=== PATIENT | female | born 1970 | race Caucasian/White ===

== ENCOUNTER 2019-12-26 09:25 | Outpatient (CLI) | payer OTHER, SELFPAY ==
[2019-12-26 10:02] LABS: Basophils Percent Auto 0.7 % (0.2-1.2); Eosinophils Absolute Auto 0.1 K/mm3 (0-0.3); Eosinophils Percent Auto 1.1 % (0-4.4); Hematocrit 37.7 % (37.0-47.0); Hemoglobin 12.5 g/dL (12.0-15.0); Immature Granulocyte Absolute 0.01 K/mm3 (0.00-0.031); Immature Granulocyte Percent A 0.2 % (0-0.5); Lymphocytes Absolute Auto 2.19 K/mm3 (0.9-3.2); Mean Corpuscular HGB Conc 33.2 g/dl (32-36); Mean Corpuscular Hemoglobin 28.3 pg (26-34); Mean Corpuscular Volume 85.5 fl (80-100); Mean Platelet Volume 9.4 fl (7.4-10.4); Monocytes Absolute Auto 0.4 K/mm3 (0.1-0.6); Monocytes Percent Auto 7.7 % (2.6-8.5); Neutrophils Absolute Auto 2.9 K/mm3 (1.3-6.7); Neutrophils Percent Auto 51.3 % (45.5-73.1); Platelet Count Result 243 k/mm3 (150-375); Red Blood Count 4.41 M/mm3 (4.2-5.4); White Blood Count 5.6 K/mm3 (4.5-10.0)
[2019-12-26 10:14] LABS: Alanine Aminotransferase 9 U/L (4-35); Albumin Level 4.1 g/dL (3.5-5.1); Alkaline Phosphatase 106 U/L (38-126); Aspartate Amino Transferase 23 U/L (14-36); Bilirubin,Total 0.2 mg/dL (0.2-1.3); Blood Urea Nitrogen 12 mg/dL (7-17); Calcium 8.9 mg/dL (8.4-10.2); Carbon Dioxide 27 mmol/L (22-30); Chloride 103 mmol/L (98-107); Cholesterol 235 mg/dL (0-200); Estimated Glomerular Filt Rate > 60; Glucose 95 mg/dL (65-105); HDL Direct 53 mg/dL; Sodium 138 mmol/L (137-145); Triglycerides 204 mg/dL (<150)
[2019-12-26 10:24] LABS: LDL Cholesterol Direct 130 mg/dL
[2019-12-26 10:45] LABS: Hepatitis B Surface Antigen Negative (Negative)
[2019-12-26 10:51] LABS: HAV RESULT Negative (Negative); Hepatitis B Core IgM Result Negative (Negative)
[2019-12-26 11:02] LABS: HIV 1/2 Ab P24 Ag Result Negative (Negative); Hepatitis C Virus Antibody Negative (Negative)
== END 2019-12-26 09:26 | disposition home or self-care (01) ==
PROVIDERS: PCP Internal Medicine; Visit Provider Internal Medicine
DX: Z11.4 Encounter for screening for human immunodeficiency virus [HIV] (principal); E78.5 Hyperlipidemia, unspecified; D64.9 Anemia, unspecified; R10.9 Unspecified abdominal pain; Z11.59 Encounter for screening for other viral diseases
CPT/HCPCS: 36415; 80053; 80061; 80074; 85025; 86703; G0432

== ENCOUNTER 2019-12-27 00:48 | Day surgery (SDC) | payer OTHER, SELFPAY ==
[2019-12-20 15:31] VITALS: BMI 29.8
[2019-12-27 11:13] VITALS: BP 146/72; PULSE 74; RESP 16; TEMP 36.6; O2SAT 97; BMI 30.4
[2019-12-27] MEDS: LACTATED RINGERS 1,000 ML 150 ML IV CONT (11:39)
--- NOTE | 2019-12-27 11:41 | WPDANESEPPF ---
Anes - Initial Pre Proc Eval Procedure: Operation Date: 12/27/19 13:00 Proposed Procedures p Esophagogastroduodenoscopy - Eliu Clark DO Date/Time: 12/27/19 11:41 Surgeon: Eliu Clark DO Pre Op Diagnosis: Abdominal Bloating, Muniz Syndrome Patient Data Age: 49 Gender: F Height: 5 ft 7 in Weight: 88.3 kg Last Vital Signs Temp 97.9 F 12/27/19 11:13 Pulse 74 12/27/19 11:13 Resp 16 12/27/19 11:13 BP 146/72 H 12/27/19 11:13 Pulse Ox 97 12/27/19 11:13 Allergies Allergy/AdvReac Type Severity Reaction Status Date / Time Penicillins Allergy Unknown Rash Verified 12/27/19 11:26 Home Medications Medication Instructions Recorded Confirmed Type omeprazole 40 mg PO DAILY 12/20/19 12/27/19 History citalopram 20 mg tablet 20 mg PO DAILY #30 tablet 12/26/19 12/26/19 Rx furosemide 20 mg tablet 20 mg PO QAM #90 tablet 12/26/19 Rx Patient hx anesthesia problems: none Family hx anesthesia problems: none PMFSH Past Medical History Medical History (Updated 12/24/19 @ 21:19 by Gilberto Cain DO) Family hx of colon cancer History of arm fracture Hx of adenomatous colonic polyps Hx of diverticulitis of colon Hyperlipidemia Hypertension Surgical History Surgical History (Updated 10/04/19 @ 12:35 by Olimpia Schneider, DAYLIGHT DRILLER) Hx of abdominal hysterectomy Hx of colonoscopy Hx of cystoscopy Family History Family History (Updated 10/04/19 @ 11:46 by Olimpia Schneider, DAYLIGHT DRILLER) Mother Cerebrovascular accident Patient's mother is Acute myocardial infarction Father Family history of malignant neoplasm of urinary bladder Sibling Carcinoma of colon Grandparent Ovarian cancer Cervical cancer Social History Social History Smoking status: Never smoker Alcohol intake: never Anes - Eval Final PreProcedure Day of Procedure 12/27/19 11:41 Patient weight: overweight Heart: regular rate and rhythm Lungs: clear to auscultation Airway: Mallampati scale class II Neurological: alert and oriented Last oral intake: >/= 8 hours ASA classification: II Emergent: no Anesthetic plan: proceed Anesthesia type and monitoring: general GIVS and standard monitoring Informed Consent: The patient's anesthetic plan and its attendant risks and benefits were discussed with the patient/family/POA. Questions were solicited and answers provided to the satisfaction of the patient/family/POA.
--- NOTE | 2019-12-27 12:36 | PM.IMHP ---
H&P: HPI History of Present Illness Chief complaint: Abdominal Bloating, Muniz Syndrome Narrative: Reason for visit EGD. This very pleasant lady seen at the request of the primary physician and with the patient admission. Impression: [place] pleasant lady with anemia. Evaluate for line peptic ulcer disease. She has significant bloating which may be due to underlying dyspepsia. Peptic ulcer disease again needs to be excluded. Family history of colorectal cancer. The patient has personal history adenomatous colon polyps. Per past medical history. Recommendation: Will proceed with EGD. Continue PPI. History: This very pleasant lady's being very for abdominal bloating. She has bloating that comes and goes. It usually occurs after eating. Nocturnal awakenings at night. She does have some right upper quadrant discomfort. Length discomforts difficult to ascertain. Nausea, vomiting hematemesis tonight. Dysphagia odynophagia tonight. Patient does have some heartburn. She was placed on a PPI with only minimal improvement. Constipation, diarrhea, hematochezia, melanotic acholic stools tonight. She did have a family history of colon cancer and a personal history of adenomatous colon polyps. She is here for EGD. Review of Systems Review of Systems: All systems reviewed & are unremarkable except as noted in HPI and below PMFSH Past Medical History Medical History (Updated 12/24/19 @ 21:19 by Gilberto Cain DO) Family hx of colon cancer History of arm fracture Hx of adenomatous colonic polyps Hx of diverticulitis of colon Hyperlipidemia Hypertension Surgical History Surgical History (Updated 10/04/19 @ 12:35 by Olimpia Schneider, HOME THEATER SPECIALIST) Hx of abdominal hysterectomy Hx of colonoscopy Hx of cystoscopy Family History Family History (Updated 10/04/19 @ 11:46 by Olimpia Schneider, HOME THEATER SPECIALIST) Mother Cerebrovascular accident Patient's mother is Acute myocardial infarction Father Family history of malignant neoplasm of urinary bladder Sibling Carcinoma of colon Grandparent Ovarian cancer Cervical cancer Social History Social History Smoking status: Never smoker Alcohol intake: never Meds Home Medications and Allergies Home Medications Medication Instructions Recorded Confirmed Type omeprazole 40 mg PO DAILY 12/20/19 12/27/19 History citalopram 20 mg tablet 20 mg PO DAILY #30 tablet 12/26/19 12/26/19 Rx furosemide 20 mg tablet 20 mg PO QAM #90 tablet 12/26/19 Rx Allergies Allergy/AdvReac Type Severity Reaction Status Date / Time Penicillins Allergy Unknown Rash Verified 12/27/19 11:26 Vital Signs Vital Signs - 24 hr 12/27/19 11:13 Temperature 36.6 C Pulse Rate 74 Respiratory Rate 16 Blood Pressure 146/72 H Pulse Oximetry 97 Exam Narrative: Exam Narrative: General: very pleasant patient in no acute distress. HEENT: Head was normocephalic sclerae is clear mouth without masses neck was supple. Heart: Rate rhythm regular without S3 or S4. Lungs: CTA. Abdomen: Soft with no guarding or rigidity. Bowel sounds were active. Neurologic: Cranial nerves 2 through 12 intact. No focal defects. No clonus. Musculoskeletal system: Revealed no joint tenderness or swelling no muscle atrophy. Extremities: Reveal no significant edema. Skin: Warm and dry with normal turgor. Mental status: intact. Patient is alert and oriented. Pearl to thank you for allowing me to participate in the care of this interesting patient.
[2019-12-27 12:58] VITALS: BP 137/71; PULSE 77; RESP 20; O2SAT 100
[2019-12-27 13:08] VITALS: BP 138/75; PULSE 66; RESP 18; O2SAT 100
[2019-12-27 13:18] VITALS: BP 141/71; PULSE 62; RESP 20; O2SAT 100
== END 2019-12-27 13:42 | disposition home or self-care (01) ==
PROVIDERS: PCP Internal Medicine; Visit Provider Internal Medicine Gastroenterology
PROC: 0DJ08ZZ Inspection of Upper Intestinal Tract, Via Natural or Artificial Opening Endoscopic (ICD-10-PCS; CPT 43235; principal; 2019-12-27 13:00)
DX: R14.0 Abdominal distension (gaseous) (principal); D64.9 Anemia, unspecified; Z15.09 Genetic susceptibility to other malignant neoplasm; Z80.0 Family history of malignant neoplasm of digestive organs; I10 Essential (primary) hypertension; E78.5 Hyperlipidemia, unspecified
CPT/HCPCS: 43239; 87081; 88305; J2001; J2704; J7120

== ENCOUNTER 2020-04-24 13:19 | Outpatient (CLI) | payer OTHER, SELFPAY ==
[2020-04-24 13:52] LABS: Urine Cotinine NEGATIVE
[2020-04-24 13:56] LABS: Alanine Aminotransferase 11 U/L (4-35); Albumin Level 4.4 g/dL (3.5-5.1); Alkaline Phosphatase 121 U/L (38-126); Aspartate Amino Transferase 26 U/L (14-36); Bilirubin,Total 0.3 mg/dL (0.2-1.3); Blood Urea Nitrogen 13 mg/dL (7-17); Calcium 9.3 mg/dL (8.4-10.2); Carbon Dioxide 26 mmol/L (22-30); Chloride 104 mmol/L (98-107); Cholesterol 283 mg/dL (0-200); Estimated Glomerular Filt Rate > 60; Glucose 96 mg/dL (65-105); HDL Direct 52 mg/dL; Potassium 4.2 mmol/L (3.4-5.0); Sodium 140 mmol/L (137-145); Triglycerides 165 mg/dL (<150)
[2020-04-24 13:59] LABS: Hemoglobin A1C 5.5 % (<5.7)
[2020-04-24 14:07] LABS: LDL Cholesterol Direct 158 mg/dL
[2020-04-24 17:28] LABS: Free T4 Free Thyroxine 1.06 ng/mL (0.78-2.19)
== END 2020-04-24 13:20 | disposition home or self-care (01) ==
PROVIDERS: PCP Internal Medicine; Visit Provider Nurse Practitioner
DX: R63.5 Abnormal weight gain (principal); E78.5 Hyperlipidemia, unspecified
CPT/HCPCS: 36415; 80053; 80061; 80307; 83036; 84439; 84443

== ENCOUNTER 2020-05-15 16:12 | Outpatient (CLI) | payer OTHER, SELFPAY ==
--- NOTE | 2020-05-21 12:39 | WPDHOLTEREM ---
Holter/Event Monitor Holter/Event Monitor Date of procedure: 05/15/20 Procedure Type: 48 hour holter monitor Indications: Palpitations Conclusion: 1. 48 hour holter on 05/15/20. 2. Underlying rhythm is sinus rhythm. HR range 46-125 bpm; average HR 80 bpm. 3. There are 6,737 premature supraventricular complexes, 19 supraventricular couplets, 1 supraventricular triplet, 3,885 supraventricular bigeminy and 281 supraventricular trigeminy. No supraventricular tachycardia. 4. There are 7 premature ventricular complexes. No ventricular tachycardia. 5. No sinoatrial or atrioventricular blocks. No significant pauses greater than 2 seconds. 6. Patient reports symptoms of pounding, skipping beats, heart pausing, fluttering, dizziness, sweating, beating hard, quivering, chest pain, palpitations which demonstrate sinus rhythm, HR range 63-119 bpm.
== END 2020-05-15 16:13 | disposition home or self-care (01) ==
PROVIDERS: PCP Internal Medicine; Visit Provider Nurse Practitioner
DX: R00.2 Palpitations (principal)
CPT/HCPCS: 93225; 93226

== ENCOUNTER 2020-07-13 09:32 | Outpatient (CLI) | payer OTHER, SELFPAY ==
--- NOTE | ~2020-07-13 | MR_ITS ---
EXAMINATION: MR knee LT wo con DATE: 07/13/2020 10:29 INDICATION: Left knee joint pain. TECHNIQUE: Magnetic resonance imaging (MRI) of the left knee was performed without intravenous contra st. Sequences included axial PD-weighted FS FSE, coronal PD-weighted FSE and PD-weighted FS FSE, sagi ttal PD-weighted FSE, and sagittal T2-weighted FS FSE. COMPARISON: Left knee radiographs 08/11/2019 FINDINGS: Medial compartment: There is a complex tear involving body and posterior horn of medial meniscus. There is shallow partia l-thickness cartilage loss of tibial condyle. There is deep partial thickness cartilage loss of femor al condyle involving the medial and central articular surface. Marginal osteophytes are noted. Lateral compartment: Lateral meniscus is normal. There is cartilage surface irregularity of femoral condyle. Tibial cartil age is normal. Patellofemoral compartment: There is deep partial thickness cartilage loss of patellar medial facet and median ridge with mild lee bchondral edema-like marrow signal intensity. There is shallow partial-thickness cartilage loss of tr ochlea. Osteophytes are noted. Ligaments and tendons: The anterior and posterior cruciate ligaments are normal. Medial collateral ligament is intact. There are changes of prior sprain of fibular collateral ligament characterized by thickening and increased signal intensity proximally. There is mild patellar tendinopathy. Fluid: There is a moderate-sized knee joint effusion. There is a moderate-sized ruptured Garcia's cyst. There is moderate superficial infrapatellar bursitis. IMPRESSION: 1. Moderate chondrosis of medial and patellofemoral compartments and mild chondrosis of lateral kelsey rtment. 2. Tear of medial meniscus. 3. Moderate-sized knee joint effusion. 4. Moderate-sized ruptured Garcia's cyst. Reviewed, dictated and finalized at location A. IMPRESSION: 1. Moderate chondrosis of medial and patellofemoral compartments and mild chond rosis of lateral compartment. 2. Tear of medial meniscus. 3. Moderate-sized knee joint effusion. 4. Moderate-sized ruptured Garcia's cyst.
== END 2020-07-13 09:33 | disposition home or self-care (01) ==
PROVIDERS: PCP Internal Medicine; Visit Provider Orthopaedic Surgery
DX: M25.462 Effusion, left knee (principal); M71.22 Synovial cyst of popliteal space [Baker], left knee; S83.242A Other tear of medial meniscus, current injury, left knee, initial encounter; X58.XXXA Exposure to other specified factors, initial encounter
CPT/HCPCS: 73721

== ENCOUNTER 2020-08-02 09:11 | Outpatient (CLI) | payer OTHER, SELFPAY ==
--- NOTE | ~2020-08-02 | MM_ITS ---
EXAMINATION: MM screening jerzy BI w oliver HISTORY: Screening TECHNIQUE: Craniocaudal and mediolateral oblique 3-D tomosynthesis images were obtained and synthetic 2-D images were generated. CAD analysis was submitted and interpreted. COMPARISON: Comparison to multiple prior studies sequentially, with oldest reviewed study dated 12/2011. BREAST PARENCHYMAL COMPOSITION: There are scattered areas of fibroglandular density. FINDINGS: There is no evidence of suspicious mass, calcification, or architectural distortion to sugg est malignancy in either breast. There has been no suspicious interval change. IMPRESSION: 1. No mammographic evidence of malignancy. 2. Recommend routine screening mammography in one year. BI-RADS Category 1: Negative Reviewed, dictated and finalized at location A.
== END 2020-08-02 09:12 | disposition home or self-care (01) ==
LOC: ANHIMG 09:14
PROVIDERS: PCP Internal Medicine; Visit Provider Internal Medicine
DX: Z12.31 Encounter for screening mammogram for malignant neoplasm of breast (principal)
CPT/HCPCS: 77063; 77067

== ENCOUNTER 2020-08-13 10:46 | Outpatient (CLI) | payer OTHER, SELFPAY ==
[2020-08-13 11:22] LABS: Alanine Aminotransferase 16 U/L (4-35); Albumin Level 4.6 g/dL (3.5-5.1); Alkaline Phosphatase 114 U/L (38-126); Aspartate Amino Transferase 36 U/L (14-36); Bilirubin,Total 0.4 mg/dL (0.2-1.3); Cholesterol 169 mg/dL (0-200); HDL Direct 50 mg/dL; Triglycerides 163 mg/dL (<150)
[2020-08-13 11:33] LABS: LDL Cholesterol Direct 71 mg/dL
== END 2020-08-13 10:47 | disposition home or self-care (01) ==
PROVIDERS: PCP Internal Medicine; Visit Provider Nurse Practitioner
DX: E78.5 Hyperlipidemia, unspecified (principal); I10 Essential (primary) hypertension
CPT/HCPCS: 36415; 80061; 80076

== ENCOUNTER 2020-08-15 10:00 | Outpatient (RCR) | payer OTHER, SELFPAY ==
--- NOTE | 2020-07-08 11:39 | PTOPEVAL ---
Thank you for referring Birgit Estrada to [facility].? The patient is scheduled to be seen for therapy? 2 x/week for 4 weeks. Please review, sign, date and return this plan of care BOBBI. I agree with and certify that the following plan of care is medically necessary. Referring Physician Date Admitting Provider: Attending Provider: Duglas Galaviz MD Referring Provider: *PT Outpatient Evaluation Start: 07/08/20 10:24 Freq: Status: Active Protocol: Document 07/08/20 10:28 TL (Rec: 07/08/20 11:21 [facility] [id number]) Therapy Assessment Status Assessment Status Assessment Status Evaluation Outpatient Past Medical History Past Medical History Source of Past Medical History Recalled from Previous Visit, Confirmed with Patient/Family Gastrointestinal History Hx Diverticulitis Yes Hx Gastroesophageal Reflux Disease Yes Hx Hemorrhoids Yes Hx Polyps Yes Genitourinary History Hx Urinary Tract Infection Yes Musculoskeletal History Hx Arthritis Yes: BILATERAL KNEES Hx Fractures Yes: RT ARM Hx Orthopedic Surgery Yes: RT ARM HEENT History Hx Eye Surgery Yes: TRK Reproductive History Hx Abnormal Uterine Bleeding Yes Hx Fibroids Yes Hx Hysterectomy Yes Instance of Pain Anesthesia History Hx Post-Op Nausea/Vomiting Yes Evaluation Information Problem Diagnosis L knee pain Additional Evaluation Detail 06/29 letting the dogs out, dark, twisted L knee turning and heard and felt pop. Limped into the house. Pain down to L big toe just that night. Unable to sleep on her side from pain. Today at [address] up [address] Dr. Bustillos. Has not been working since 12 Icy hot 1x/day. Advil PRN Subjective Information [place] [facility] since April. 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
--- NOTE | 2020-07-08 11:43 | PTOPEVAL ---
Thank you for referring Birgit Estrada to [facility].? The patient is scheduled to be seen for therapy? 2 x/week for 4 weeks. Please review, sign, date and return this plan of care BOBBI. I agree with and certify that the following plan of care is medically necessary. Referring Physician Date Admitting Provider: Attending Provider: Duglas Galaviz MD Referring Provider: *PT Outpatient Evaluation Start: 07/08/20 10:24 Freq: Status: Active Protocol: Document 07/08/20 10:28 TL (Rec: 07/08/20 11:21 [facility] [id number]) Therapy Assessment Status Assessment Status Assessment Status Evaluation Outpatient Past Medical History Past Medical History Source of Past Medical History Recalled from Previous Visit, Confirmed with Patient/Family Hx Diverticulitis Yes Hx Gastroesophageal Reflux Disease Yes Hx Hemorrhoids Yes Hx Polyps Yes Genitourinary History Hx Urinary Tract Infection Yes Musculoskeletal History Hx Arthritis Yes: BILATERAL KNEES Hx Fractures Yes: RT ARM Hx Orthopedic Surgery Yes: RT ARM Hx Eye Surgery Yes: TRK Reproductive History Hx Abnormal Uterine Bleeding Yes Hx Fibroids Yes Hx Hysterectomy Yes Anesthesia History Hx Post-Op Nausea/Vomiting Yes Evaluation Information Problem Diagnosis L knee pain Onset 06/29/20 Subjective Information Pt was letting the dogs out on Query Text:As Reported By Patient/ 07/08. It was dark and another Family dog came around the corner. Pt twisted L knee turning away from dog and heard and felt pop at L knee. Pain progressed down to L big toe (sharp/nerve pain) just that night. Nerve pain subsided next day however soreness at L knee continued with mild swelling. Unable to sleep on her side from pain of knees touching. Went to Dr. Galaviz who took x -rays that revealed OA. Returns to Dr. Galaviz later today for follow up appointment. 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 Icy hot 1x/day that doesn't
--- NOTE | 2020-08-02 07:42 | PTOPEVAL ---
Thank you for referring Birgit Estrada to [facility].? The patient is scheduled to be seen for therapy? 2 x/week for 4 weeks. Please review, sign, date and return this plan of care BOBBI. I agree with and certify that the following plan of care is medically necessary. Referring Physician Date Attending Provider: Duglas Galaviz MD *PT Outpatient Evaluation Start: 07/08/20 10:24 Freq: Status: Active Protocol: Document 08/01/20 14:59 JHONY (Rec: 08/01/20 15:54 JHONY [id number]) Therapy Assessment Status Assessment Status Assessment Status Re-evaluation Evaluation Information Problem Diagnosis L knee pain Onset 06/29/20 Additional Evaluation Detail Pt was letting the dogs out on 07/08. It was dark and another dog came around the corner. Pt twisted L knee turning away from dog and heard and felt pop at L knee. 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 Aug 19 MD appt Subjective Information Reports she cont to have nerve Query Text:As Reported By Patient/ pain from posterior thigh to Family lower leg. No particaluar activity increases the pain. She is limited with her walking due to pain. She is not working due to the knee injury. She is able to straighten the knee better since therapy. REports her left lower leg is more swollen since the injury. Pain Assessment Timing of Pain Assessment Timing of Pain Assessment Pre-Treatment Pain Scale Pain Scale Used Numeric (1 - 10) Self Report Pain Assessment Left Knee(s) Reported Pain Level 0 Pain Description Aching,Numbness,Radiating, Sharp,Stabbing,Tingling Pain Frequency Intermittent Lowest Pain Intensity 0 Greatest Pain Intensity 4 Pain Aggravating Factors Exercise/Activity,Sitting, Stair Climbing,Walking,Weight Bearing/Standing Pain Relief Interventions Used By Exercise,Ice,Medication Patient Pain Score Pain Score 0: Self Report Lower Extremity Range of Motion Knee Range of Motion Right Knee Extension Range of Motion - Active 0 Query Text:
--- NOTE | 2020-08-20 09:47 | PCPTNOTE ---
Patient called & cancelled scheduled appointment this date due to going for surgery.
--- NOTE | 2020-08-20 09:51 | PCPTNOTE ---
Admitting Provider: Attending Provider: Duglas Galaviz MD Patient:Birgit Estrada Date of :1970 Discharge Note Patient has been scheduled for knee surgery and cancelled her remaining therapy appointments. Patient?s initial visit was on 07/08/2020 10:30 and she had a total of 11 visits. The goals have been partially met. Thank you [facility]. Please review, sign, date and return this discharge summary BOBBI. I have been updated about the patient's current status and I agree with discharge from the above service at this time. Referring Physician Date
== END 2020-08-20 15:30 | disposition home or self-care (01) ==
LOC: ANHPT 10:00
PROVIDERS: PCP Internal Medicine; Visit Provider Orthopaedic Surgery
DX: M25.562 Pain in left knee (principal)
CPT/HCPCS: 97035; 97110; 97112; 97140; 97161; 97530

== ENCOUNTER 2020-08-20 11:13 | Outpatient (CLI) | payer OTHER, SELFPAY ==
--- NOTE | 2020-08-20 11:18 | ECG_ITS ---
Measurements Intervals [place] Rate: 63 P: 11 [place]: 192 QRS: 24 QRSD: 79 T: 33 QT: 409 QTc: 419 Interpretive Statements SINUS RHYTHM DELAYED PRECORDIAL R/S TRANSITION BASELINE ARTIFACT- I, II, III, AVR, AVL, AVF BORDERLINE ECG Electronically Signed On 08-20-2020 12:20:28 HISTOLOGY SUPERVISOR by Fernando Hudson D.O.
[2020-08-20 12:22] LABS: Anion Gap 9 mmol/L (8-16); Blood Urea Nitrogen 17 mg/dL (7-17); Calcium 9.7 mg/dL (8.4-10.2); Carbon Dioxide 29 mmol/L (22-30); Chloride 102 mmol/L (98-107); Estimated Glomerular Filt Rate > 60; Glucose 96 mg/dL (65-105); Potassium 4.4 mmol/L (3.4-5.0); Sodium 140 mmol/L (137-145)
== END 2020-08-20 11:14 | disposition home or self-care (01) ==
LOC: ANHSURGERY 11:18
PROVIDERS: Anesthesiology; PCP Internal Medicine; Visit Provider Orthopaedic Surgery
DX: I10 Essential (primary) hypertension (principal); Z79.899 Other long term (current) drug therapy
CPT/HCPCS: 36415; 80048; 93005

== ENCOUNTER 2020-08-30 02:13 | Outpatient (CLI) | payer OTHER, SELFPAY ==
[2020-08-30 19:52] LABS: SARS-CoV-2 RNA PCR Negative
== END 2020-08-30 02:14 | disposition home or self-care (01) ==
LOC: ANHCOVIDDT 02:13
PROVIDERS: PCP Internal Medicine; Visit Provider Orthopaedic Surgery
DX: Z01.812 Encounter for preprocedural laboratory examination (principal); Z20.828 Contact with and (suspected) exposure to other viral communicable diseases
CPT/HCPCS: 87635; C9803; U0003

== ENCOUNTER 2020-09-02 00:51 | Day surgery (SDC) | payer OTHER, SELFPAY ==
[2020-08-19 15:47] VITALS: BMI 30.7
--- NOTE | 2020-08-28 15:22 | PM.IMHP ---
H&P: HPI History of Present Illness Date/Time: 08/28/20 15:22 Chief complaint: medial meniscus tear left knee Narrative: Birgit Estrada is a 50 year old female Who presents today for arthroscopy of her left knee with partial medial meniscectomy. She injured her knee in early June. She twisted on it and felt a pop in the medial and anterior medial aspect of the knee. He had rather severe pain immediately following this. Most of the pain was with weight-bearing and over the medial aspect of the knee. She was taken ibuprofen 800 mg twice a day without improvement of her symptoms. She was initially evaluated on 07/01. She did rest for about a week after being seen but unfortunately she did not have any improvement of her symptoms. She was subsequently sent for an MRI scan of the knee which showed a prominent radial tear of the posterior horn of the medial meniscus with degenerative changes of the posterior horn and midbody of the medial meniscus. Patient has not had any improvement of her symptoms since her original onset. Doctor Guillaume discussed options with her. Patient's feels she would rather proceed with arthroscopy of the knee rather continue nonsurgical treatment. Review of Systems Review of Systems: All systems reviewed & are unremarkable except as noted in HPI and below PMFSH Past Medical History Medical History Family hx of colon cancer History of arm fracture Hx of adenomatous colonic polyps Hx of diverticulitis of colon Hyperlipidemia Hypertension Muniz syndrome Surgical History Surgical History Hx of abdominal hysterectomy Hx of colonoscopy Hx of cystoscopy Family History Family History Mother Cerebrovascular accident Patient's mother is Acute myocardial infarction Father Family history of malignant neoplasm of urinary bladder Sibling Carcinoma of colon Grandparent Ovarian cancer Cervical cancer Social History Social History Smoking status: Never smoker Alcohol intake: current Drinks per week: 3 Spiritual care concerns: No Meds Home Medications and Allergies Home Medications Medication Instructions Recorded Confirmed Type citalopram 20 mg tablet 20 mg PO DAILY #30 tablet 05/27/20 08/27/20 Rx furosemide 20 mg tablet 20 mg PO QAM #90 tablet 06/25/20 08/27/20 Rx atorvastatin 20 mg tablet 20 mg PO DAILY #90 tablet 07/12/20 08/27/20 Rx amlodipine 5 mg tablet 5 mg PO DAILY #90 tablet 07/22/20 08/27/20 Rx metoprolol succinate [Toprol XL] 25 mg PO QPM 08/19/20 08/27/20 History multivitamin 1 tablet PO DAILY 08/19/20 08/27/20 History Allergies Allergy/AdvReac Type Severity Reaction Status Date / Time Penicillins Allergy Unknown Rash Verified 08/27/20 08:41 Exam Narrative: Exam Narrative: 50-year-old female alert pleasant no distress. She is 5 ft 5 and 203 lb. She walks with a prominent limp. Her left knee range of motion is from 0-140 degrees. She has a mild effusion. She has no pain with patellofemoral grind. Negative Itz's testing. She has severe point tenderness over the posterior medial aspect of the knee. No tenderness over the lateral aspect. Normal AP and mediolateral stability in the knee. Hip range of motion is full without discomfort. 2+ dorsalis pedis pulse. Resp: Auscultation: clear to auscultation bilaterally Cardio: Rate: regular rate Rhythm: regular rhythm Assessment and Plan Additional Plan The patient is having continued symptoms in the medial aspect of her knee since original injury in early June. She has not had significant improvement overall. Again the option of arthroscopy was discussed with her she would like to proceed. Surgical procedure as well as risk and complications were discussed and all questions ans
--- NOTE | 2020-09-01 13:34 | WPDANESEPP ---
Anes - Eval Pre Procedure Procedure: Operation Date: 09/02/20 07:30 Proposed Procedures p Arthroscopic Partial Medial Menisectomy Left Knee, Proceed As Indicated - Duglas Galaviz MD Date/Time: 09/01/20 13:34 Pre Op Diagnosis: medial meniscus tear left knee Patient Data Age: 50 Gender: F Height: 1.68 m Weight: 86.18 kg Allergies Allergy/AdvReac Type Severity Reaction Status Date / Time Penicillins Allergy Unknown Rash Verified 08/27/20 08:41 Home Medications Medication Instructions Recorded Confirmed Type citalopram 20 mg tablet 20 mg PO DAILY #30 tablet 05/27/20 08/27/20 Rx furosemide 20 mg tablet 20 mg PO QAM #90 tablet 06/25/20 08/27/20 Rx atorvastatin 20 mg tablet 20 mg PO DAILY #90 tablet 07/12/20 08/27/20 Rx amlodipine 5 mg tablet 5 mg PO DAILY #90 tablet 07/22/20 08/27/20 Rx metoprolol succinate [Toprol XL] 25 mg PO QPM 08/19/20 08/27/20 History multivitamin 1 tablet PO DAILY 08/19/20 08/27/20 History Patient hx anesthesia problems: post op nausea/vomiting Family hx anesthesia problems: none PMFSH Past Medical History Medical History Diverticulitis Family hx of colon cancer History of arm fracture Hx of adenomatous colonic polyps Hx of diverticulitis of colon Hyperlipidemia Hypertension Muniz syndrome Surgical History Surgical History History of hysterectomy Hx of abdominal hysterectomy Hx of colonoscopy Hx of cystoscopy Family History Family History Mother Cerebrovascular accident Patient's mother is Acute myocardial infarction Father Family history of malignant neoplasm of urinary bladder Sibling Carcinoma of colon Grandparent Ovarian cancer Cervical cancer Social History Social History Smoking status: Never smoker Alcohol intake: current Drinks per week: 3 Spiritual care concerns: No Exam Day of Procedure 09/01/20 13:34
[2020-09-02] VITALS (8 sets, daily range): BP systolic 100–128; BP diastolic 45–72; PULSE 56–93; RESP 13–23; TEMP 36.4; O2SAT 92–100
[2020-09-02] MEDS: LACTATED RINGERS 1,000 ML 30 ML IV CONT (06:36)
[2020-09-02] MEDS: KETOROLAC 15 MG/ML VIAL (*BKC) IV PUSH (06:39)
[2020-09-02] MEDS: ACETAMINOPHEN 500 MG TABLET 1000 MG PO (06:39)
[2020-09-02] MEDS: FAMOTIDINE 20 MG/2 ML VIAL IV PUSH (06:44)
[2020-09-02] MEDS: SCOPOLAMINE 1.5 MG PATCH TRANSDERM (06:45)
--- NOTE | 2020-09-02 07:22 | WPDHPUPDATE1 ---
History and Physical Update Update Date/Time: 09/02/20 07:22 History and Physical has been reviewed, including an updated exam of the patient. There are NO changes in the patient's condition. Risks, benefits, and alternatives have been discussed and questions answered. Patient agrees to proceed with procedure.
[2020-09-02] MEDS: CLINDAMYCIN 900 MG/D5W 50 ML 900 MG/50 ML PIGGYBACK 50 MG IVPB (07:29)
[2020-09-02] MEDS: LIDO 1%/EPINEPHRINE 1:100,000 20 ML VIAL INFILTRATE (08:02)
--- NOTE | 2020-09-02 08:27 | P.OP_ITS ---
Procedure Note - Detailed Date of procedure: 09/02/20 Pre-op diagnosis: medial meniscus tear left knee Post-op diagnosis: same Procedure performed: Arthroscopic partial medial meniscectomy left knee Description of procedure: patient was brought to the operating room and general anesthesia was administered and the left knee prepped and draped usual fashion. She received 900 mg of clindamycin preoperatively. History of rash with penicillin. Standard arthroscopic portals were placed after injection of soft tissues of 1% lidocaine with epinephrine. The medial compartment showed moderate thickness diffuse cartilage loss of the medial femoral condyle with some delamination at the margins was gently trimmed with a full-radius motorized shaver. There was a radial tear of the posterior horn of the medial meniscus that extended from the center of the posterior horn centrally to the periphery closer to the root. There is deficiency of the inferior leaflet of meniscus. We carefully searched for any flaps with probing around the margins of the tibia and I could not identify a significant flap. The superior leaflet was trimmed transitioning to the periphery at the root at the apex of the tear and this was transitioned back to the midbody. There was mild chondromalacia medial tibial plateau as well. The anterior cruciate ligament looked normal. The lateral compartment showed fibrillation of the inner margin of the lateral meniscus midbody and anterior horn with some maceration and minimal tearing of the inner margin of the anterior horn and we placed a motorized shaver the lateral compartment and performed a minimal trimming of the fibrillated tissue with the full-radius shaver. There was very superficial fibrillation diffusely on the lateral femoral condyle and lateral plateau. The patellofemoral compartment s howed moderate grade chondromalacia diffusely on the trochlea milder on the patella. There are no loose bodies in the suprapatellar pouch or the medial or lateral gutters. The medial gutter in particular showed rather significant synovitis. We will obtain a rheumatoid factor sed rate and CRP in the recovery room. The portals were closed with 5 0 nylon suture and she was transferred postop recovery. Anesthesia: GLMA Surgeon: Duglas Galaviz MD Amusement Park Entertainer: Charis Ferrer Estimated blood loss (mL): 0 Tourniquet time (min): 0 Drains: No Packing: No Pathology: none sent Complications: No immediate complications Condition: stable Disposition: PACU Findings: medial meniscus tear, mild osteoarthritis medial compartment, tricompartmental chondromalacia
[2020-09-02] MEDS: fentaNYL CITRATE INJ (*CRX) 100 MCG/2 ML VIAL 25 MCG IV PUSH (09:08)
== END 2020-09-02 10:17 | disposition home or self-care (01) ==
PROVIDERS: PCP Internal Medicine; Visit Provider Orthopaedic Surgery
PROC: (CPT 29870; principal; 2020-09-02 07:30)
DX: S83.242A Other tear of medial meniscus, current injury, left knee, initial encounter (principal); X50.0XXA Overexertion from strenuous movement or load, initial encounter; M94.262 Chondromalacia, left knee; M65.862 Other synovitis and tenosynovitis, left lower leg; I10 Essential (primary) hypertension; E78.5 Hyperlipidemia, unspecified; Z15.09 Genetic susceptibility to other malignant neoplasm
CPT/HCPCS: 29881; A9270; J1100; J1885; J2250; J2405; J2704; J3010; J7120

== ENCOUNTER 2020-09-04 10:59 | Outpatient (CLI) | payer OTHER, SELFPAY ==
[2020-09-04 11:51] LABS: CRP 1.1 mg/dL (<1.0)
[2020-09-04 11:52] LABS: Rheumatoid Factor < 8.6 IU/ML (<12)
[2020-09-04 12:16] LABS: Erythrocyte Sedimentation Rate 21 mm/hr (0-20)
[2020-09-06 21:59] LABS: Anti Cyclic Citrullinated Pept <16 Units (<20)
== END 2020-09-04 11:00 | disposition home or self-care (01) ==
LOC: ANHLAB 11:01
PROVIDERS: PCP Internal Medicine; Visit Provider Orthopaedic Surgery
DX: M25.562 Pain in left knee (principal)
CPT/HCPCS: 36415; 85652; 86140; 86200; 86430

== ENCOUNTER 2021-02-24 09:32 | Outpatient (CLI) | payer OTHER, SELFPAY ==
[2021-02-24 10:10] LABS: Alanine Aminotransferase 12 U/L (4-35); Albumin Level 4.6 g/dL (3.5-5.1); Alkaline Phosphatase 101 U/L (38-126); Anion Gap 5 mmol/L (8-16); Aspartate Amino Transferase 33 U/L (14-36); Bilirubin,Total 0.4 mg/dL (0.2-1.3); Blood Urea Nitrogen 16 mg/dL (7-17); Calcium 9.9 mg/dL (8.4-10.2); Carbon Dioxide 30 mmol/L (22-30); Chloride 104 mmol/L (98-107); Cholesterol 186 mg/dL (0-200); Estimated Glomerular Filt Rate > 60; Glucose 101 mg/dL (65-105); HDL Direct 60 mg/dL; Potassium 3.8 mmol/L (3.4-5.0); Sodium 139 mmol/L (137-145); Triglycerides 237 mg/dL (<150)
[2021-02-24 10:20] LABS: LDL Cholesterol Direct 73 mg/dL
[2021-02-24 11:58] LABS: Vitamin D 25 Hydroxy 36.1 ng/mL
== END 2021-02-24 09:33 | disposition home or self-care (01) ==
LOC: ANHLAB 09:36
PROVIDERS: PCP Internal Medicine; Visit Provider Internal Medicine
DX: E78.5 Hyperlipidemia, unspecified (principal); E55.9 Vitamin D deficiency, unspecified; I10 Essential (primary) hypertension; Z79.899 Other long term (current) drug therapy
CPT/HCPCS: 36415; 80053; 80061; 82306

== ENCOUNTER 2021-03-03 07:20 | Outpatient (CLI) | payer OTHER, SELFPAY ==
--- NOTE | ~2021-03-03 | MR_ITS ---
EXAMINATION: MR MRCP wo/w con/w 3D wo ind DATE: 03/03/2021 08:55 INDICATION: Muniz syndrome. TECHNIQUE: Magnetic resonance imaging (MRI) of the abdomen was performed without and with 17 mL Multi Troy intravenous contrast. Sequences included coronal T2-weighted FS FSE, coronal T2-weighted FSE, a xial T1-weighted LAVA, coronal FS FIESTA, axial dual-echo T1-weighted SPGR, coronal lava-FLEX, sagitt al T2-weighted FSE, axial T2-weighted FSE, and axial DWI. Thick-slab T2-weighted FSE images were obta ined for magnetic resonance cholangiopancreatography (MRCP). Maximum intensity projection 3-D reconst ructions of the volumetric data were created by the technologist. Postcontrast sequences included cor onal LAVA-flex and time course of axial T1-weighted LAVA. COMPARISON: CT abdomen and pelvis 07/21/2019 FINDINGS: ABDOMEN MRI: There is a 4 mm cyst in the liver. Again seen are lesions in the spleen measuring up to 12 mm, likely benign. The gallbladder, pancreas, adrenal glands, and kidneys are normal. There are no dilated loops of bowel. There are no pathologically enlarged lymph nodes. There is no free intraperi toneal fluid. There is severe lumbar spondylosis. ABDOMEN MRCP: The common duct is normal and measures 6 mm. No choledocholithiasis. IMPRESSION: 1. No evidence of malignancy. Reviewed, dictated and finalized at location A.
== END 2021-03-03 07:21 | disposition home or self-care (01) ==
PROVIDERS: PCP Internal Medicine; Visit Provider Internal Medicine Gastroenterology
DX: Z15.09 Genetic susceptibility to other malignant neoplasm (principal)
CPT/HCPCS: 74183; 76376; A9577

== ENCOUNTER 2021-08-27 09:20 | Outpatient (CLI) | payer OTHER, SELFPAY ==
[2021-08-27 10:23] LABS: Alanine Aminotransferase 13 U/L (4-35); Albumin Level 4.4 g/dL (3.5-5.1); Alkaline Phosphatase 94 U/L (38-126); Anion Gap 9 mmol/L (8-16); Aspartate Amino Transferase 30 U/L (14-36); Bilirubin,Total 0.4 mg/dL (0.2-1.3); Blood Urea Nitrogen 13 mg/dL (7-17); Calcium 9.3 mg/dL (8.4-10.2); Carbon Dioxide 26 mmol/L (22-30); Chloride 105 mmol/L (98-107); Cholesterol 245 mg/dL (0-200); Estimated Glomerular Filt Rate > 60; Glucose 89 mg/dL (65-110); HDL Direct 48 mg/dL; Potassium 4.2 mmol/L (3.4-5.0); Sodium 140 mmol/L (137-145); Triglycerides 184 mg/dL (<150)
[2021-08-27 10:34] LABS: LDL Cholesterol Direct 128 mg/dL
[2021-08-27 11:17] LABS: Vitamin D 25 Hydroxy 44.8 ng/mL
== END 2021-08-27 09:21 | disposition home or self-care (01) ==
LOC: ANHLAB 09:23
PROVIDERS: PCP Internal Medicine; Visit Provider Internal Medicine
DX: E78.5 Hyperlipidemia, unspecified (principal); I10 Essential (primary) hypertension; Z79.899 Other long term (current) drug therapy; E55.9 Vitamin D deficiency, unspecified
CPT/HCPCS: 36415; 80053; 80061; 82306

== ENCOUNTER 2021-11-17 09:41 | Outpatient (CLI) | payer OTHER, SELFPAY ==
--- NOTE | ~2021-11-17 | MM_ITS ---
EXAMINATION: MM screening jerzy BI w oliver HISTORY: Screening TECHNIQUE: Craniocaudal and mediolateral oblique 3-D tomosynthesis images were obtained and synthetic 2-D images were generated. CAD analysis was submitted and interpreted. COMPARISON: Comparison to multiple prior studies sequentially, with oldest reviewed study dated 01/2013. BREAST PARENCHYMAL COMPOSITION: There are scattered areas of fibroglandular density. FINDINGS: There is no evidence of suspicious mass, calcification, or architectural distortion to sugg est malignancy in either breast. There has been no suspicious interval change. IMPRESSION: 1. No mammographic evidence of malignancy. 2. Recommend routine screening mammography in one year. BI-RADS Category 1: Negative Reviewed, dictated and finalized at location A. 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
== END 2021-11-17 09:42 | disposition home or self-care (01) ==
LOC: ANHIMG 09:47
PROVIDERS: PCP Internal Medicine; Visit Provider Nurse Practitioner
DX: Z12.31 Encounter for screening mammogram for malignant neoplasm of breast (principal)
CPT/HCPCS: 77063; 77067

== ENCOUNTER → 2022-01-21 10:29 | Outpatient (CLI) | payer OTHER, SELFPAY ==
--- NOTE | ~2022-01-21 | XR_ITS ---
EXAMINATION: XR knee RT 3V DATE: 01/21/2022 10:51 INDICATION: Right knee pain TECHNIQUE: Weight bearing anteroposterior, sunrise, and flexed lateral views of the right knee were o btained COMPARISON: 08/11/2019 FINDINGS: Alignment is normal. No fracture. Joint spaces are normal. Small osteophyte at the proximal pole of the patella. No joint effusion/layering lipohemarthrosis. Soft tissues are unremarkable. IMPRESSION: 1. Mild right patellofemoral osteoarthritis. Reviewed, dictated and finalized at location B.
== END ==
PROVIDERS: PCP Internal Medicine; Visit Provider Nurse Practitioner
DX: M17.11 Unilateral primary osteoarthritis, right knee (principal)
CPT/HCPCS: 73562

== ENCOUNTER 2022-02-09 08:50 | Outpatient (CLI) | payer OTHER, SELFPAY ==
--- NOTE | 2022-02-16 15:23 | WPDHOMESLEEP ---
Sleep Study - Home Unattended Date of Study: 02/09/22 Ordering Provider: MARIAH SearsC Interpreting Provider: Anisa Cortes, DO Home Sleep Study Type: Apnea Link Air Height: 1.65 m Weight: 86.183 kg Body Mass Index: 31.6 Neck Circumference (inches): 16.5 [place]: 10 Reason for Sleep Study Witnessed apneas, Unrefreshing sleep, daytime hypersomnia Sleep History The patient is a 51-year-old female with hypertension,heart palpitations and RLS that had a sleep study ordered for evaluation of sleep apnea. The patient frequently awakens from sleep short of breath. She rarely awakens at night with heartburn, belching or cough. She occasionally snores but is rarely loud enough that others complain. She occasionally has trouble sleeping when she has a cold. She frequently wakes up gasping for air throughout the night. She frequently has breathing problems at night observed by herself or others. She occasionally sweats excessively at night. She occasionally has heart palpitations or irregular heartbeats during the night. She rarely falls asleep during the day and never while driving. She denies cataplexy. She occasionally has trouble at school or work due to sleepiness. She rarely feels unable to move while waking up or falling asleep. She rarely experiences vivid dreamlike scenes upon awakening or falling asleep. She rarely has nightmares. She occasionally remembers her dreams. She occasionally has thoughts racing through her mind. She rarely feels sad or depressed. She occasionally has anxiety. She denies having muscular tension. She frequently notices parts of her body jerk. She frequently kicks during the night. She frequently has crawling and aching feelings in her legs and frequently has leg pain during the night. She frequently grinds her teeth during sleep but never awakens with morning jaw pain. She is rarely bothered by pain during the day and rarely awakened by pain during the night. She frequently wakes up feeling stiff in morning. She frequently wakes up with sore achy muscles. She occasionally wakes up with pain in the neck, spine or other joints. She goes to bed at 10:00 p.m. on weekdays and 11:00 p.m. on the weekends. It takes her 30 minutes to fall asleep. She wakes up 3-5 times throughout the night to urinate or to readjust her self in bed. It takes her 15 minutes to fall back asleep. She wakes up at 5:00 a.m. on workdays and 80 cm on the weekends. She typically gets 6 hours of sleep per night. She will stay in bed for 5 minutes after waking up the morning. She currently lives with her and daughter. He does not consume any caffeinated beverages within 2 hours of bedtime. She does not engage in physical exercise before time. She does not read or watch television before falling asleep. She does not take naps in the afternoon with the evening. He drinks 6 cups of caffeinated beverage per day. She denies tobacco, alcohol recreational drug use. [facility] Past Medical History Medical History Diverticulitis Family hx of colon cancer History of arm fracture Hx of adenomatous colonic polyps Hx of diverticulitis of colon Hyperlipidemia Hypertension Muniz syndrome Surgical History Surgical History History of hysterectomy Hx of abdominal hysterectomy Hx of colonoscopy Hx of cystoscopy Family History Family History Mother Cerebrovascular accident Patient's mother is Acute myocardial infarction Father Family history of malignant neoplasm of urinary bladder Sibling Carcinoma of colon Grandparent Ovarian cancer Cervical cancer Social History Social History Smoking status: Never smoker Second hand tobacco smoke exposure: No Alcohol intake: cur
[2022-02-16 15:35] VITALS: BMI 31.6
== END 2022-02-10 12:08 | disposition home or self-care (01) ==
LOC: ANHCSM 08:50
PROVIDERS: PCP Internal Medicine; Visit Provider Nurse Practitioner
DX: R06.81 Apnea, not elsewhere classified (principal); G47.9 Sleep disorder, unspecified
CPT/HCPCS: 95806

== ENCOUNTER 2022-03-06 07:50 | Outpatient (CLI) | payer OTHER, SELFPAY ==
--- NOTE | 2022-03-12 14:41 | WPDSLEEPSTUD ---
Sleep Study Date of Study: 03/06/22 Ordering Provider: MARCIAL Sears Interpreting Physician: Delilah Reveles MD Sleep Study Type: Polysomnogram Height: 1.68 m Weight: 88.904 kg Body Mass Index: 31.6 Neck Circumference (inches): 15.5 [place]: 10 Reason for Sleep Study * 02/09/2022 Home Sleep Apnea Test , ApneaLink showed an overall AHI of 2.9 which is not consistent with sleep disordered breathing.? She has symptoms out of proportion to the findings on the home sleep test. She has witnessed apneas and daytime symptoms. She presents for a split night study for further evaluation.? Ferritin is 03/05/2022 is 101 ng/mL, normal. Sleep History Birgit Estrada is a 51-year-old female with hypertension,heart palpitations and restless leg symptoms who had a home sleep test February 06, 2022 with a normal AHI. The patient frequently awakens from sleep short of breath.? She rarely awakens at night with heartburn, belching or coughing.? She occasionally snores but is rarely loudly enough that others complain.? She occasionally has trouble sleeping when she has a cold.? She frequently wakes up gasping for air throughout the night.? She frequently has breathing problems at night observed by herself or others.? She occasionally sweats excessively at night.? She occasionally has heart palpitations or irregular heartbeats during the night.? She rarely falls asleep during the day and never while driving.? She denies loss of muscle strength with strong emotion. She occasionally has daytime difficulties due to excessive sleepiness.? She rarely feels unable to move while waking up or falling asleep.? She rarely experiences vivid dreamlike scenes upon awakening or falling asleep.? She rarely has nightmares.? She occasionally remembers her dreams.? She occasionally has thoughts racing through her mind.? She rarely feels sad or depressed.? She occasionally has anxiety.? She denies having muscular tension.? She frequently notices parts of her body jerk.? She frequently kicks during the night.? She frequently has crawling and aching feelings in her legs and frequently has leg pain during the night.? She frequently grinds her teeth during sleep but never awakens with morning jaw pain.? She is rarely bothered by pain during the day and rarely awakened by pain during the night.? She frequently wakes up feeling stiff in morning.? She frequently wakes up with sore achy muscles.? She occasionally wakes up with pain in the neck, spine or other joints.? She goes to bed at 10:00 p.m. on weekdays and 11:00 p.m., taking 30 minutes to fall asleep.? She wakes up 3-5 times throughout the night to urinate or to readjust herself in bed.? She is able to return to sleep within 15 minutes. She wakes up at 5:00 a.m. on workdays and 8:00 a.m. on the weekends.? She typically gets 6 hours of sleep per night.? She will stay in bed for 5 minutes after waking up the morning.? She currently lives with her and daughter.? She does not take naps in the afternoon or the evening.? Habits: No tobacco. She drinks 6 cups of caffeinated beverage per day.?No alcohol or recreational drug use. [facility] Past Medical History Medical History (Updated 03/12/22 @ 15:54 by Delilah Reveles MD) Diverticulitis Family hx of colon cancer History of arm fracture Hx of adenomatous colonic polyps Hx of diverticulitis of colon Hyperlipidemia Hypertension Muniz syndrome Restless legs Surgical History Surgical History History of hysterectomy Hx of abdominal hysterectomy Hx of colonoscopy Hx of cystoscopy Family History Family History Mother Cerebrovascular accident Patient's mother is Acute myocardial infarction Father Family history of malignant neoplasm of urinary bladder Sibling Carcinoma of colon Grandparent Ovarian cancer Cervical cancer Social History Social History (R
[2022-03-12 16:51] VITALS: BMI 31.6
== END 2022-03-07 06:14 | disposition home or self-care (01) ==
LOC: ANHCSM 07:51
PROVIDERS: PCP Internal Medicine; Visit Provider Nurse Practitioner
DX: R06.81 Apnea, not elsewhere classified (principal); G47.61 Periodic limb movement disorder; G25.81 Restless legs syndrome
CPT/HCPCS: 95810

== ENCOUNTER 2022-04-16 01:13 | Day surgery (SDC) | payer OTHER, SELFPAY ==
[2022-04-01 13:33] VITALS: BMI 32.0
--- NOTE | 2022-04-16 11:06 | PM.HPGS ---
History of Present Illness History of Present Illness Consent: Risks, benefits, and alternatives have been discussed and questions answered. Patient agrees to proceed with procedure. Chief complaint: neoplasm screening, family hx colon ca, dysphagia Narrative: Birgit Estrada is a 51 year old female recently has had occasional dysphagia in the area of the suprasternal notch. She also suffers from chronic heartburn which has been a bit worse lately. She has Muniz syndrome. Her brother in fact was diagnosed with colon cancer when he was in his early 40s Review of Systems Review of Systems: All systems reviewed & are unremarkable except as noted in HPI and below PMFSH Past Medical History Medical History Anxiety Diverticulitis Dysphagia Family hx of colon cancer History of arm fracture Hx of adenomatous colonic polyps Hx of diverticulitis of colon Hyperlipidemia Hypertension Muniz syndrome Restless legs Surgical History Surgical History History of hysterectomy Hx of abdominal hysterectomy Hx of colonoscopy Hx of cystoscopy Family History Family History Mother Cerebrovascular accident Patient's mother is Acute myocardial infarction Father Family history of malignant neoplasm of urinary bladder Sibling Carcinoma of colon Grandparent Ovarian cancer Cervical cancer Social History Social History Smoking status: Never smoker Second hand tobacco smoke exposure: No Alcohol intake: current Alcohol use details: on occasion Substance use: never Substance use type: does not use Living arrangements: with family Spiritual care concerns: No Meds Home Medications and Allergies Home Medications Medication Instructions Recorded Confirmed Type multivitamin 1 tablet PO DAILY 08/19/20 04/01/22 History biotin 10,000 mcg capsule 10,000 mcg PO DAILY 08/28/21 04/01/22 History cholecalciferol (vitamin D3) 50 50 mcg PO DAILY 08/28/21 04/01/22 History mcg (2,000 unit) capsule fish oil-fat acid comb8-herb 1,200 cap PO DAILY 08/28/21 04/01/22 History [id number] 1,200 mg (400 ca-[id number]) cap magnesium oxide 500 mg tablet 500 mg PO DAILY 11/11/21 06/15/22 History turmeric root extract 500 mg 500 mg PO DAILY 08/28/21 04/01/22 History capsule eszopiclone 2 mg tablet (Lunesta) 2 mg PO QHS PRN sleep #30 tabs 03/05/22 04/01/22 Rx amlodipine 5 mg tablet See Rx Instructions .Route 03/23/22 04/01/22 Rx .COMPLEX #90 tabs ropinirole 0.25 mg tablet 0.75 mg PO QHS #180 tabs 03/31/22 04/01/22 Rx metoprolol succinate 25 mg See Rx Instructions .Route 04/03/22 04/16/22 Rx tablet,extended release 24 hr .COMPLEX #30 tabs exenatide microspheres 2 mg/0.65 2 mg (0.65 mL) subcut WEEKLY #4 ea 04/07/22 04/16/22 Rx mL subcutaneous pen injector Allergies Allergy/AdvReac Type Severity Reaction Status Date / Time Penicillins Allergy Severe Rash Verified 04/16/22 11:14 Exam Const: General: alert Orientation/consciousness: patient oriented x3 Resp: Auscultation: clear to auscultation bilaterally Cardio: Rhythm: regular rhythm GI: GI Palp: Yes Soft to palpation and No Tenderness to palpation present (GI) Neuro: General: patient oriented x3 Assessment and Plan Assessment and plan (1) Dysphagia: Code(s): R13.10 - Dysphagia, unspecified Status: Acute Assessment and Plan: EGD with possible biopsy or dilatation or cautery. (2) Colon cancer screening: Code(s): Z12.11 - Encounter for screening for malignant neoplasm of colon Status: Acute Assessment and Plan: Colonoscopy with possible biopsy or polypectomy or cautery or injection of substances.
[2022-04-16 11:16] VITALS: BP 130/54; PULSE 66; RESP 18; TEMP 36.3; O2SAT 97
[2022-04-16] MEDS: LACTATED RINGERS 1,000 ML 150 ML IV CONT (11:28)
--- NOTE | 2022-04-16 11:59 | WPDANESEPPF ---
Anes - Initial Pre Proc Eval Procedure: Operation Date: 04/16/22 12:30 Proposed Procedures p Esophagogastroduodenoscopy & Screening Colonoscopy - Roshan Richard MD Date/Time: 04/16/22 11:59 Surgeon: Roshan Richard MD Pre Op Diagnosis: neoplasm screening, family hx colon ca, dysphagia Patient Data Age: 51 Gender: F Height: 1.68 m Weight: 87.8 kg Last Vital Signs Temp 36.3 C L 04/16/22 11:16 Pulse 66 04/16/22 11:16 Resp 18 04/16/22 11:16 BP 130/54 L 04/16/22 11:16 Pulse Ox 97 04/16/22 11:16 O2 Del Method Room Air 04/16/22 11:16 Allergies Allergy/AdvReac Type Severity Reaction Status Date / Time Penicillins Allergy Severe Rash Verified 04/16/22 11:14 Home Medications Medication Instructions Recorded Confirmed Type multivitamin 1 tablet PO DAILY 08/19/20 04/01/22 History biotin 10,000 mcg capsule 10,000 mcg PO DAILY 08/28/21 04/01/22 History cholecalciferol (vitamin D3) 50 50 mcg PO DAILY 08/28/21 04/01/22 History mcg (2,000 unit) capsule fish oil-fat acid comb8-herb 1,200 cap PO DAILY 08/28/21 04/01/22 History [id number] 1,200 mg (400 ta-[id number]) cap magnesium oxide 500 mg tablet 500 mg PO DAILY 08/28/21 04/01/22 History turmeric root extract 500 mg 500 mg PO DAILY 08/28/21 04/01/22 History capsule eszopiclone 2 mg tablet (Lunesta) 2 mg PO QHS PRN sleep #30 tabs 03/05/22 04/01/22 Rx amlodipine 5 mg tablet See Rx Instructions .Route 03/23/22 04/01/22 Rx .COMPLEX #90 tabs ropinirole 0.25 mg tablet 0.75 mg PO QHS #180 tabs 03/31/22 04/01/22 Rx metoprolol succinate 25 mg See Rx Instructions .Route 04/03/22 04/16/22 Rx tablet,extended release 24 hr .COMPLEX #30 tabs exenatide microspheres 2 mg/0.65 2 mg (0.65 mL) subcut WEEKLY #4 ea 04/07/22 04/16/22 Rx mL subcutaneous pen injector Patient hx anesthesia problems: post op nausea/vomiting Family hx anesthesia problems: none Results Review: All pre-operative results and documents have been reviewed as part of the pre-operative evaluation. [facility] Past Medical History Medical History Anxiety Diverticulitis Dysphagia Family hx of colon cancer History of arm fracture Hx of adenomatous colonic polyps Hx of diverticulitis of colon Hyperlipidemia Hypertension Muniz syndrome Restless legs Surgical History Surgical History History of hysterectomy Hx of abdominal hysterectomy Hx of colonoscopy Hx of cystoscopy Family History Family History Mother Cerebrovascular accident Patient's mother is Acute myocardial infarction Father Family history of malignant neoplasm of urinary bladder Sibling Carcinoma of colon Grandparent Ovarian cancer Cervical cancer Social History Social History Smoking status: Never smoker Second hand tobacco smoke exposure: No Alcohol intake: current Alcohol use details: on occasion Substance use: never Substance use type: does not use Living arrangements: with family Spiritual care concerns: No Anes - Eval Final PreProcedure Day of Procedure 04/16/22 11:59 Patient weight: obese Heart: regular rate and rhythm Lungs: clear to auscultation Airway: Mallampati scale class II Neurological: alert and oriented Last oral intake: >/= 8 hours ASA classification: III Emergent: no Anesthetic plan: proceed Anesthesia type and monitoring: general GIVS and standard monitoring Results Review: All pre-operative results and documents have been reviewed as part of the pre-operative evaluation. Informed Consent: The patient's anesthetic plan and its attendant risks and benefits were discussed with the patient/family/POA. Questions were solicited and answers provided to the satisfaction of the patient/family/POA.
--- NOTE | 2022-04-16 12:33 | SUR.OPER ---
EGD end 1228 COLONOSCOPY START 1234
[2022-04-16 12:49] VITALS: BP 86/46; PULSE 61; RESP 19; O2SAT 100
[2022-04-16 12:59] VITALS: BP 112/52; PULSE 63; RESP 14; O2SAT 99
[2022-04-16 13:09] VITALS: BP 113/53; PULSE 59; RESP 20; O2SAT 100
== END 2022-04-16 13:25 | disposition home or self-care (01) ==
PROVIDERS: PCP Internal Medicine; Visit Provider Internal Medicine Gastroenterology
PROC: 0DJ08ZZ Inspection of Upper Intestinal Tract, Via Natural or Artificial Opening Endoscopic (ICD-10-PCS; CPT 43235; principal; 2022-04-16 12:30)
DX: Z12.11 Encounter for screening for malignant neoplasm of colon (principal); K21.00 Gastro-esophageal reflux disease with esophagitis, without bleeding; K29.70 Gastritis, unspecified, without bleeding; K64.8 Other hemorrhoids; K57.30 Diverticulosis of large intestine without perforation or abscess without bleeding; R13.19 Other dysphagia; F41.9 Anxiety disorder, unspecified; Z80.0 Family history of malignant neoplasm of digestive organs; I10 Essential (primary) hypertension; E78.5 Hyperlipidemia, unspecified; G25.81 Restless legs syndrome; E66.9 Obesity, unspecified; Z68.31 Body mass index [BMI] 31.0-31.9, adult
CPT/HCPCS: 45378; 43239; 87081; 88305; J2704; J7120

== ENCOUNTER 2022-07-23 09:27 | Outpatient (CLI) | payer OTHER, SELFPAY ==
--- NOTE | 2022-07-23 09:39 | ECG_ITS ---
Measurements Intervals [place] Rate: 62 P: 28 NC: 202 QRS: 52 QRSD: 93 T: 45 QT: 396 QTc: 405 Interpretive Statements SINUS RHYTHM COMPARED TO ECG 08/20/2020 12:04:32 NO SIGNIFICANT CHANGES Electronically Signed On 07-23-2022 17:24:33 CDT by Noelle Olvera M.D.
== END 2022-07-23 09:28 | disposition home or self-care (01) ==
LOC: ANHSURGERY 09:31
PROVIDERS: PCP Internal Medicine; Visit Provider Orthopaedic Surgery
DX: I10 Essential (primary) hypertension (principal); Z01.818 Encounter for other preprocedural examination
CPT/HCPCS: 93005

== ENCOUNTER 2022-07-29 01:52 | Day surgery (SDC) | payer OTHER, SELFPAY ==
[2022-07-20 14:47] VITALS: BMI 30.7
--- NOTE | 2022-07-20 14:53 | PC.NURSE ---
Report to the Outpatient Waiting Room, entrance under the green pavilion located off [facility], at time _1000_ on date _[id number]_. OR Time: _1200_. Time changes happen often and if your time is changed the preop area will call you the afternoon before. - You and your visitor will be asked to self-screen and do not enter if you have any COVID symptoms. - Only one visitor and NO children visitors are allowed at this time. - The patient visitor is requested to leave or wait in car when not with patient due to restrictions. - A mask is required within the hospital. Patients may have clear liquids (water, carbonated beverages, clear teas, apple juice) until 3 hours prior to surgery with a maximum of 20 ounces. - No food from midnight until time of surgery Take the following medications with a SIP of water the morning of surgery: ___Amlodipine Medications to discontinue per physician All vitamins and supplements Date to take last mptp__[id number] Please no make-up, nail nepali, hairspray, perfume, deodorant, or body powder the day of surgery. No jewelry (including any body piercings) or valuables the day of surgery, leave them at home. Please take a shower or bath the night before, or the morning of, surgery with an antibacterial soap. Wear comfortable, loose fitting clothing. - Jewelry must be removed prior to entering the operating room. Rings and piercings that are not removed may be cut off. - The hospital will not accept responsibility for valuables. - Please leave all valuables, including medications, at home the day of surgery. If you are going home after surgery, a licensed reefer truck driver must drive you home. - NO public transportation without another adult. - We recommend that an adult stay with you for 24 hours following discharge. - We also recommend that you do not drive, make important decision, drink alcoholic beverages, or take any drugs that were not prescribed by your health care provider for at least 24 hours after your discharge time. Follow any additional instructions given to you from your surgeon. If you or anyone in your household have experienced Covid symptoms in the past week, please notify your surgeon or the nurse liaison at the phone number below for possible testing. Telephone instructions given to _Patient__and asked if any additional questions and then verbalized understanding. Patient advised to call surgeon office or pre surgery nurse liaison [phone] if any additional questions.
--- NOTE | 2022-07-27 14:09 | PM.IMHP ---
H&P: HPI History of Present Illness Date/Time: 07/27/22 14:09 Chief Complaint: Medial meniscus tear right. Narrative: 52-year-old female who presents today for arthroscopy of her left knee with partial medial meniscectomy. She had onset of symptoms of pain in the knee starting in November or December of this year. Symptoms came on spontaneously. She does not recall any injuries or trauma. She has been having pain over the medial aspect of her knee since that time. Patient has been on anti-inflammatories, diclofenac 75 mg b.i.d.. She has had a cortisone injection in March. Neither of these 2 have helped her symptoms. Patient does have [id number] medial compartment osteoarthritis. She has had an MRI scan which shows degenerative tearing of the medial meniscus with possible radial tear at the junction the anterior and midbody. There is no bony edema noted. She also has significant cartilage loss superior pole of patella. Options were discussed. Patient at this point is miserable on a regular basis that she would like to proceed with arthroscopy to see if this will improve her symptoms. Review of Systems Review of Systems: All systems reviewed & are unremarkable except as noted in HPI and below PMFSH Past Medical History Medical History Anxiety Diverticulitis Dysphagia Family hx of colon cancer History of arm fracture Hx of adenomatous colonic polyps Hx of diverticulitis of colon Hyperlipidemia Hypertension Muniz syndrome Restless legs Surgical History Surgical History History of hysterectomy Hx of abdominal hysterectomy Hx of colonoscopy Hx of cystoscopy Family History Family History Mother Cerebrovascular accident Patient's mother is Acute myocardial infarction Father Family history of malignant neoplasm of urinary bladder Sibling Carcinoma of colon Grandparent Ovarian cancer Cervical cancer Social History Social History Smoking status: Never smoker Second hand tobacco smoke exposure: No Alcohol intake: current Alcohol use details: on occasion Substance use: never Substance use type: does not use Spiritual care concerns: No Meds Home Medications and Allergies Home Medications Medication Instructions Recorded Confirmed Type multivitamin 1 tablet PO DAILY 08/19/20 07/20/22 History biotin 10,000 mcg capsule 10,000 mcg PO DAILY 08/28/21 07/20/22 History cholecalciferol (vitamin D3) 50 50 mcg PO DAILY 08/28/21 07/20/22 History mcg (2,000 unit) capsule fish oil-fat acid comb8-herb 1,200 cap PO DAILY 08/28/21 07/20/22 History [id number] 1,200 mg ([id number]) cap magnesium oxide 500 mg tablet 500 mg PO DAILY 08/28/21 07/20/22 History turmeric root extract 500 mg 500 mg PO DAILY 08/28/21 07/20/22 History capsule amlodipine 5 mg tablet See Rx Instructions .Route 03/23/22 07/20/22 Rx .COMPLEX #90 tabs metoprolol succinate 25 mg See Rx Instructions .Route 04/03/22 07/20/22 Rx tablet,extended release 24 hr .COMPLEX #30 tabs ropinirole 0.25 mg tablet 0.75 mg PO QHS #180 tabs 06/04/22 07/20/22 Rx eszopiclone 2 mg tablet (Lunesta) 2 mg PO QHS PRN sleep #30 tabs 07/24/22 Rx pantoprazole 40 mg tablet,delayed See Rx Instructions .Route 07/27/22 Rx release .COMPLEX #90 tabs Allergies Allergy/AdvReac Type Severity Reaction Status Date / Time Penicillins Allergy Severe Rash Verified 07/20/22 14:45 Exam Narrative: 52-year-old female alert pleasant. She is 5 ft 5 and 198 lb her BMI is 32.9. Range of motion right knee is from 0-130 degrees. She has pain over the anterior medial aspect the knee at full flexion. Itz's testing is equivocal. She has severe pain with patellofemoral grind and mild medial joint line tenderness. No
[2022-07-29] VITALS (8 sets, daily range): BP systolic 102–132; BP diastolic 53–79; PULSE 52–79; RESP 12–16; TEMP 36.3–36.4; O2SAT 92–100
[2022-07-29] MEDS: ACETAMINOPHEN 500 MG TABLET 1000 MG PO (10:10)
[2022-07-29] MEDS: LACTATED RINGERS 1,000 ML 30 ML IV CONT ×2 (10:15→12:54)
--- NOTE | 2022-07-29 10:44 | SUR.PREOP ---
1045- PT STATED SHE DOES NOT LIKE CRUTCHES AND HAS A WALKER AT HOME FOR AFTER SURGERY
--- NOTE | 2022-07-29 11:04 | WPDANESEPPF ---
Anes - Initial Pre Proc Eval Procedure: Operation Date: 07/29/22 12:00 Proposed Procedures p Arthroscopic Partial Medial Meniscectomy Right Knee, Proceed As Indicated - Duglas Galaviz MD Date/Time: 07/29/22 11:04 Surgeon: Duglas Galaviz MD Pre Op Diagnosis: Medial Meniscus Tear Right Knee Patient Data Age: 52 Gender: F Height: 1.68 m Weight: 90.9 kg Last Vital Signs Temp 36.4 C L 07/29/22 10:33 Pulse 68 07/29/22 10:33 Resp 16 07/29/22 10:33 BP 126/69 07/29/22 10:33 Pulse Ox 100 07/29/22 10:33 O2 Del Method Room Air 07/29/22 10:33 Allergies Allergy/AdvReac Type Severity Reaction Status Date / Time Penicillins Allergy Severe Rash Verified 07/29/22 10:03 Home Medications Medication Instructions Recorded Confirmed Type multivitamin 1 tablet PO DAILY 08/19/20 07/29/22 History biotin 10,000 mcg capsule 10,000 mcg PO DAILY 08/28/21 07/29/22 History cholecalciferol (vitamin D3) 50 50 mcg PO DAILY 08/28/21 07/29/22 History mcg (2,000 unit) capsule fish oil-fat acid comb8-herb 1,200 cap PO DAILY 08/28/21 07/29/22 History [id number] 1,200 mg (400 [id number]) cap magnesium oxide 500 mg tablet 500 mg PO DAILY 08/28/21 07/29/22 History turmeric root extract 500 mg 500 mg PO DAILY 08/28/21 07/20/22 History capsule amlodipine 5 mg tablet See Rx Instructions .Route 03/23/22 07/29/22 Rx .COMPLEX #90 tabs metoprolol succinate 25 mg See Rx Instructions .Route 04/03/22 07/29/22 Rx tablet,extended release 24 hr .COMPLEX #30 tabs ropinirole 0.25 mg tablet 0.75 mg PO QHS #180 tabs 06/04/22 07/20/22 Rx eszopiclone 2 mg tablet (Lunesta) 2 mg PO QHS PRN sleep #30 tabs 07/24/22 Rx Patient hx anesthesia problems: none Family hx anesthesia problems: none Results Review: All pre-operative results and documents have been reviewed as part of the pre-operative evaluation. [facility] Past Medical History Medical History Anxiety Diverticulitis Dysphagia Family hx of colon cancer History of arm fracture Hx of adenomatous colonic polyps Hx of diverticulitis of colon Hyperlipidemia Hypertension Muniz syndrome Restless legs Surgical History Surgical History History of hysterectomy Hx of abdominal hysterectomy Hx of colonoscopy Hx of cystoscopy Family History Family History Mother Cerebrovascular accident Patient's mother is Acute myocardial infarction Father Family history of malignant neoplasm of urinary bladder Sibling Carcinoma of colon Grandparent Ovarian cancer Cervical cancer Social History Social History Smoking status: Never smoker Second hand tobacco smoke exposure: No Alcohol intake: current Alcohol use details: on occasion Substance use: never Substance use type: does not use Living arrangements: with family Spiritual care concerns: No Anes - Eval Final PreProcedure Day of Procedure 07/29/22 11:04 Patient weight: obese Heart: regular rate and rhythm Lungs: clear to auscultation Airway: Mallampati scale class II Neurological: alert and oriented Last oral intake: >/= 8 hours ASA classification: III Emergent: no Anesthetic plan: proceed Anesthesia type and monitoring: general LMA and standard monitoring Results Review: All pre-operative results and documents have been reviewed as part of the pre-operative evaluation. Informed Consent: The patient's anesthetic plan and its attendant risks and benefits were discussed with the patient/family/POA. Questions were solicited and answers provided to the satisfaction of the patient/family/POA.
[2022-07-29] MEDS: KETOROLAC 15 MG/ML VIAL (*BKC) IV PUSH ×3 (11:13→14:32)
--- NOTE | 2022-07-29 11:54 | WPDHPUPDATE1 ---
History and Physical Update Update Date/Time: 07/29/22 11:54 History and Physical has been reviewed, including an updated exam of the patient. There are NO changes in the patient's condition. Risks, benefits, and alternatives have been discussed and questions answered. Patient agrees to proceed with procedure.
[2022-07-29] MEDS: ceFAZolin 2 GM/D5W 50 ML 2 GM/50 ML BAG IVPB (12:00)
--- NOTE | 2022-07-29 13:14 | W.PM.PROC2 ---
Procedure Note - Detailed Date of Procedure 07/29/22 Pre-op Diagnosis Medial Meniscus Tear Right Knee Post-op Diagnosis Same Procedure Performed Arthroscopic partial medial meniscectomy right knee Surgeon Duglas Galaviz MD Anesthesia General Description of Procedure Patient was brought to the operating room and general anesthesia was administered the right knee prepped draped usual fashion with the leg in the arthroscopic leg orosco. She received 2 g of Ancef preoperatively. Local anesthesia was injected the soft tissues for pain control postoperatively. Standard arthroscopic portals were placed. The medial compartment was inspected 1st. There was mild to moderate superficial chondromalacia of the medial femoral condyle diffusely. Medial medial tibial plateau looked normal. There was a radial tear midbody of the medial meniscus that extended to the pink periphery superiorly and to the White rim inferiorly. Arthroscopic partial medial meniscectomy was carried out with alternating punch and motorized shaver resecting the posterior leaflet of the midbody to the apex of the radial tear and transitioning this toward the medial root. The meniscus tissue was tough and required the punch to. Arthroscope was placed in the anteromedial portal and the 45 degree angled basket punch used to transition the anterior leaflet of midbody to the anterior horn. Arthrocare was used for hemostasis. The lateral meniscus lateral compartment ACL PCL looked normal. The suprapatellar pouch was free of any additional debris or loose bodies and there was moderate diffuse chondromalacia of the patella. Portals were closed with 4-0 nylon suture and the patient transferred postop recovery room in stable condition. No known complications. Estimated Blood Loss 20 Complications No immediate complications Condition Stable Disposition PACU
[2022-07-29] MEDS: oxyCODONE HCL (*CRX) 5 MG TAB IR PO (14:32)
== END 2022-07-29 15:07 | disposition home or self-care (01) ==
PROVIDERS: PCP Internal Medicine; Visit Provider Orthopaedic Surgery
PROC: (CPT 29870; principal; 2022-07-29 12:00)
DX: M23.331 Other meniscus derangements, other medial meniscus, right knee (principal); M22.41 Chondromalacia patellae, right knee; I10 Essential (primary) hypertension; E78.5 Hyperlipidemia, unspecified; G25.81 Restless legs syndrome; F41.9 Anxiety disorder, unspecified; E66.9 Obesity, unspecified; Z68.32 Body mass index [BMI] 32.0-32.9, adult
CPT/HCPCS: 29881; 93005; A9270; J0690; J1100; J1170; J1885; J2250; J2405; J2704; J3010; J7120

== ENCOUNTER → 2022-10-15 10:09 | Outpatient (CLI) | payer OTHER, SELFPAY ==
--- NOTE | ~2022-10-15 | XR_ITS ---
Lumbosacral Spine: AP and lateral views Clinical History: Pain Findings: The normal lordotic curve is maintained. The vertebral bodies and posterior elements are i ntact. The intervertebral disc spaces are preserved. Facet joint degenerative changes are present fr om L3 through S1. The sacroiliac joints are normally outlined. Impression: Facet joint degenerative changes, as above. Reviewed, dictated and finalized at location M. [employer] Impression: Facet joint degenerative changes, as above.
== END ==
PROVIDERS: PCP Internal Medicine; Visit Provider Internal Medicine
DX: M54.16 Radiculopathy, lumbar region (principal)
CPT/HCPCS: 72100

== ENCOUNTER 2023-08-05 07:58 | Outpatient (CLI) | payer OTHER, SELFPAY ==
--- NOTE | ~2023-08-05 | MM_ITS ---
EXAMINATION: MM screening jerzy BI w oliver HISTORY: Screening TECHNIQUE: Craniocaudal and mediolateral oblique 3-D tomosynthesis images were obtained and synthetic 2-D images were generated. CAD analysis was submitted and interpreted. COMPARISON: Comparison to multiple prior studies sequentially, with oldest reviewed study dated 09/19. BREAST PARENCHYMAL COMPOSITION: There are scattered areas of fibroglandular density. FINDINGS: There is no evidence of suspicious mass, calcification, or architectural distortion to sugg est malignancy in either breast. There has been no suspicious interval change. IMPRESSION: 1. No mammographic evidence of malignancy. 2. Recommend routine screening mammography in one year. BI-RADS Category 1: Negative Reviewed, dictated and finalized at location A.
== END 2023-08-05 07:59 | disposition home or self-care (01) ==
PROVIDERS: PCP Nurse Practitioner Family; Visit Provider Nurse Practitioner Family
DX: Z12.31 Encounter for screening mammogram for malignant neoplasm of breast (principal)
CPT/HCPCS: 77063; 77067

== ENCOUNTER 2023-12-30 10:27 | Outpatient (CLI) | payer OTHER, SELFPAY ==
--- NOTE | ~2023-12-30 | XR_ITS ---
Clinical Indication: Cough PA and lateral views of the chest: Comparison: 06/26/2019 Findings: The lungs are clear, without evidence of focal consolidation or pleural effusion. Cardiome diastinal silhouette is within normal limits. Bones and soft tissues are unremarkable. Impression: Normal chest. Reviewed, dictated and finalized at location . Impression: Normal chest.
== END 2023-12-30 10:28 ==
LOC: MICIMG 10:29
PROVIDERS: PCP Nurse Practitioner Family; Visit Provider Nurse Practitioner Family
DX: R05.9 Cough, unspecified (principal); R06.02 Shortness of breath
CPT/HCPCS: 71046

== ENCOUNTER 2023-12-30 11:07 | Outpatient (CLI) | payer OTHER, SELFPAY ==
[2023-12-30 11:51] LABS: Strep Group A RT-PCR NOT DETECTED (Negative)
== END 2023-12-30 11:08 | disposition home or self-care (01) ==
LOC: ANHLAB 11:09
PROVIDERS: PCP Nurse Practitioner Family; Visit Provider Nurse Practitioner Family
DX: J32.9 Chronic sinusitis, unspecified (principal); R53.83 Other fatigue
CPT/HCPCS: 87651

== ENCOUNTER 2024-05-30 08:38 | Day surgery (SDC) | payer OTHER, SELFPAY ==
[2024-05-08 08:58] VITALS: BMI 23.6
[2024-05-22 10:52] VITALS: BMI 24.2
--- NOTE | 2024-05-29 13:02 | PM.HPGS ---
History of Present Illness History of Present Illness Consent: Risks, benefits, and alternatives have been discussed and questions answered. Patient agrees to proceed with procedure. Chief complaint: Family HX of colon cancer, Muniz Syndrome Narrative: Birgit Estrada is a 53 year old female with Muniz syndrome, family history of colon cancer. Review of Systems Review of Systems: All systems reviewed & are unremarkable except as noted in HPI and below PMFSH Past Medical History Medical History Anxiety Degenerative disc disease, lumbar Diverticulitis Diverticulitis of large intestine with perforation without bleeding Dysphagia History of arm fracture History of tuberculosis Hyperlipidemia Hypertension Muniz syndrome Migraine, unspecified, not intractable, without status migrainosus PLMD (periodic limb movement disorder) Postmenopausal Restless legs Tear of medial meniscus of right knee Vitamin D deficiency Surgical History Surgical History History of hysterectomy Hx of abdominal hysterectomy Hx of colonoscopy Hx of cystoscopy Family History Family History Mother Cerebrovascular accident Patient's mother is Acute myocardial infarction Father Family history of malignant neoplasm of urinary bladder Sibling Carcinoma of colon Grandparent Ovarian cancer Cervical cancer Social History Social History Smoking status: Never smoker Second hand tobacco smoke exposure: No Alcohol intake: never Alcohol use details: on occasion Substance use: never Substance use type: does not use Lack of Transportation: No Lack of Food: Never True Current Housing: I Do Not Have Housing Concerned About Future Housing: No Difficulty Paying Gas/Electric Bills: No Difficulty Paying for Meds: No Currently Unemployed: No Education: Associate Degree Difficulty w/ Childcare or Family Care: No Living arrangements: with family Spiritual care concerns: No Meds Home Medications and Allergies Home Medications Medication Instructions Recorded Confirmed Type multivitamin 1 tablet PO DAILY 08/19/20 05/30/24 History biotin 10,000 mcg capsule 10,000 mcg PO DAILY 08/28/21 05/30/24 History turmeric root extract 500 mg 500 mg PO DAILY 08/28/21 05/30/24 History capsule niacin 500 mg capsule,extended 500 mg PO QHS #30 caps 11/23/22 05/30/24 Rx release cyclobenzaprine 10 mg tablet 10 mg PO PRN PRN Back Pain 08/31/23 05/30/24 History ezetimibe 10 mg tablet 10 mg PO DAILY #90 tabs 02/15/24 05/30/24 Rx eszopiclone 2 mg tablet (Lunesta) 2 mg PO QHS PRN sleep #30 tabs 05/09/24 05/30/24 Rx celecoxib 200 mg capsule (Celebrex) 200 mg PO DAILY 05/22/24 05/30/24 History tirzepatide (weight loss) 15 15 mg subcut MO 05/22/24 05/30/24 History mg/0.5 mL subcutaneous pen injector (Zepbound) Allergies Allergy/AdvReac Type Severity Reaction Status Date / Time Penicillins Allergy Severe Rash Verified 05/30/24 09:08 Exam Resp: Auscultation: clear to auscultation bilaterally Cardio: Rate: regular rate Rhythm: regular rhythm GI: GI Palp: Yes Soft to palpation and No Tenderness to palpation present (GI) Assessment and Plan Assessment and plan (1) 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
[2024-05-30 09:09] VITALS: BP 104/51; PULSE 66; RESP 15; TEMP 37.4; O2SAT 100
[2024-05-30] MEDS: LACTATED RINGERS 1,000 ML 150 ML IV CONT (09:13)
--- NOTE | 2024-05-30 10:08 | WPDANESEPPF ---
Anes - Initial Pre Proc Eval Procedure: Operation Date: 05/30/24 10:30 Proposed Procedures p Diagnostic Colonoscopy - Roshan Richard MD Date/Time: 05/30/24 10:08 Surgeon: Roshan Richard MD Pre Op Diagnosis: Family HX of colon cancer, Muniz Syndrome Patient Data Age: 53 Gender: F Height: 1.68 m Weight: 65.1 kg Last Vital Signs Temp 37.4 C 05/30/24 09:09 Pulse 66 05/30/24 09:09 Resp 15 05/30/24 09:09 BP 104/51 L 05/30/24 09:09 Pulse Ox 100 05/30/24 09:09 O2 Del Method Room Air 05/30/24 09:09 Allergies Allergy/AdvReac Type Severity Reaction Status Date / Time Penicillins Allergy Severe Rash Verified 05/30/24 09:08 Home Medications Medication Instructions Recorded Confirmed Type multivitamin 1 tablet PO DAILY 08/19/20 05/30/24 History biotin 10,000 mcg capsule 10,000 mcg PO DAILY 08/28/21 05/30/24 History turmeric root extract 500 mg 500 mg PO DAILY 08/28/21 05/30/24 History capsule niacin 500 mg capsule,extended 500 mg PO QHS #30 caps 11/23/22 05/30/24 Rx release cyclobenzaprine 10 mg tablet 10 mg PO PRN PRN Back Pain 08/31/23 05/30/24 History ezetimibe 10 mg tablet 10 mg PO DAILY #90 tabs 02/15/24 05/30/24 Rx eszopiclone 2 mg tablet (Lunesta) 2 mg PO QHS PRN sleep #30 tabs 05/09/24 05/30/24 Rx celecoxib 200 mg capsule (Celebrex) 200 mg PO DAILY 05/22/24 05/30/24 History tirzepatide (weight loss) 15 15 mg subcut MO 05/22/24 05/30/24 History mg/0.5 mL subcutaneous pen injector (Zepbound) Patient hx anesthesia problems: none Family hx anesthesia problems: none Results Review: All pre-operative results and documents have been reviewed as part of the pre-operative evaluation. [facility] Past Medical History Medical History Anxiety Degenerative disc disease, lumbar Diverticulitis Diverticulitis of large intestine with perforation without bleeding Dysphagia History of arm fracture History of tuberculosis Hyperlipidemia Hypertension Muniz syndrome Migraine, unspecified, not intractable, without status migrainosus PLMD (periodic limb movement disorder) Postmenopausal Restless legs Tear of medial meniscus of right knee Vitamin D deficiency Surgical History Surgical History History of hysterectomy Hx of abdominal hysterectomy Hx of colonoscopy Hx of cystoscopy Family History Family History Mother Cerebrovascular accident Patient's mother is Acute myocardial infarction Father Family history of malignant neoplasm of urinary bladder Sibling Carcinoma of colon Grandparent Ovarian cancer Cervical cancer Social History Social History Smoking status: Never smoker Second hand tobacco smoke exposure: No Alcohol intake: never Alcohol use details: on occasion Substance use: never Substance use type: does not use Lack of Transportation: No Lack of Food: Never True Current Housing: I Do Not Have Housing Concerned About Future Housing: No Difficulty Paying Gas/Electric Bills: No Difficulty Paying for Meds: No Currently Unemployed: No Education: Associate Degree Difficulty w/ Childcare or Family Care: No Living arrangements: with family Spiritual care concerns: No Anes - Eval Final PreProcedure Day of Procedure 05/30/24 10:08 Patient weight: normal Heart: regular rate and rhythm Lungs: clear to auscultation Airway: Mallampati scale class II Neurological: alert and oriented Last oral intake: >/= 8 hours ASA classification: III Emergent: no Anesthetic plan: proceed Anesthesia type and monitoring: general GIVS and standard monitoring Results Review: All pre-operative results and documents have been reviewed as part of the pre-operative evaluation. Informed Consent: The patient's anesthet
[2024-05-30 11:02] VITALS: BP 103/54; PULSE 79; RESP 14; O2SAT 100
[2024-05-30 11:12] VITALS: BP 119/61; PULSE 67; RESP 18; O2SAT 100
[2024-05-30 11:22] VITALS: BP 116/57; PULSE 63; RESP 18; O2SAT 100
--- NOTE | 2024-05-30 11:35 | WPDANESPN ---
Anes - Prog Note Post-Op Date/Time: 05/30/24 11:35 Cardiovascular status: normal Respiratory status: normal Airway patency: baseline Mental status: baseline Post-Op hydration status: normal Vital Signs: Last Vital Signs Temp 37.4 C 05/30/24 09:09 Pulse 63 05/30/24 11:22 Resp 18 05/30/24 11:22 BP 116/57 L 05/30/24 11:22 Pulse Ox 100 05/30/24 11:22 O2 Del Method Room Air 05/30/24 11:22 Pain Score (VAS): 0/10 I/O: Intake & Output 05/29/24 05/30/24 05/30/24 23:59 07:59 15:59 Intake Total 550 Balance 550 Patient Feedback: Patient satisfied with anesthetic care.
== END 2024-05-30 11:30 | disposition home or self-care (01) ==
PROVIDERS: PCP Nurse Practitioner Family; Visit Provider Internal Medicine Gastroenterology
PROC: 0DJD8ZZ Inspection of Lower Intestinal Tract, Via Natural or Artificial Opening Endoscopic (ICD-10-PCS; CPT 45378; principal; 2024-05-30 10:30)
DX: Z12.11 Encounter for screening for malignant neoplasm of colon (principal); Z80.0 Family history of malignant neoplasm of digestive organs; K57.30 Diverticulosis of large intestine without perforation or abscess without bleeding
CPT/HCPCS: 45378

== ENCOUNTER 2025-09-12 15:20 | Outpatient (CLI) | payer OTHER, SELFPAY ==
--- NOTE | ~2025-09-12 | MM_ITS ---
EXAMINATION: MM screening jerzy BI w oliver HISTORY: Screening. TECHNIQUE: Craniocaudal and mediolateral oblique 3-D tomosynthesis images were obtained and synthetic 2-D images were generated. CAD analysis was submitted and interpreted. COMPARISON: 2022, 2021, and 2019 BREAST PARENCHYMAL COMPOSITION: Not Dense: There are scattered areas of fibroglandular tissue. FINDINGS: No suspicious masses are seen. There are no suspicious calcifications. No unexplained architectural distortion is seen. There are no skin or nipple abnormalities identified. There is no adenopathy seen on the images submitted. IMPRESSION: No mammographic evidence to suggest malignancy is seen. The patient may return to screening mammography as per ACR guidelines. BI-RADS: 1 - Negative. Reviewed, dictated and finalized at location B. ITY BILL COLLECTOR
--- OUTSIDE RECORDS SUMMARY | 2025-09-12 15:24 | XMS_ITS | Clinical Summary ---
Author Organization [facility] [address] Address [address] [place] [address] Care Team Providers Care Disease Control Inspector Name Role Phone Gilberto Cain DO Primary Care Provider [phone] Allergies Active Allergy Reactions Criticality Noted Date Comments Penicillins Hives,Itching,Rash Medium 02/27/2009 Medications cholecalciferol , vitamin D3, (cholecalcifero l, vit D3,,bulk,) 100,000 unit/gram powder Take by mouth daily Active amLODIPine (NORVASC) 5 mg tablet Take 5 mg by mouth daily 2 Active aspirin 81 mg enteric coated tablet aspirin 81 mg tablet,delayed release TAKE 1 TABLET BY MOUTH EVERY 12 HOURS Active celecoxib (CeleBREX) 200 mg capsule Active eszopiclone (LUNESTA) 2 mg tablet eszopiclone 2 mg tablet TAKE 1 TABLET BY MOUTH EVERY DAY AT BEDTIME NEEDED FOR SLEEP Active metoprolol XL (TOPROL-XL) 25 mg extended release tablet metoprolol succinate ER 25 mg tablet,extended release 24 hr TAKE 1 TABLET BY MOUTH EVERYDAY AT BEDTIME Active Active Problems Problem Noted Date Diagnosed Date Osteoarthritis 05/20/2022 Arthralgia of right knee 02/18/2022 Mitral valve disease 03/03/2011 Edema 03/03/2011 Social History Tobacco Use Types Packs/Day Years Used Date Smoking Tobacco: Former Personal Safety Answer Date Recorded Getting School Help Needed Not on file 12/17 Comments Unknown Sex and Gender Information Value Date Recorded Sex Assigned at Not on file Legal Sex Female 5:20 PM SHANK BONER Gender Identity Female 11/14/2022 8:39 PM SHANK BONER Sexual Orientation Not on file Last Filed Vital Signs Vital Sign Reading Time Taken Comments Blood Pressure 104/50 12/18/2023 6:55 PM SHANK BONER Pulse 69 12/18/2023 6:55 PM SHANK BONER Temperature 36.8 C (98.3 F) 12/18/2023 6:55 PM SHANK BONER Respiratory Rate 20 12/18/2023 6:55 PM SHANK BONER Oxygen Saturation 99% 12/18/2023 6:55 PM SHANK BONER Inhaled Oxygen Concentration - - Weight 67.8 kg (149 lb 6.4 oz) 12/18/2023 6:55 P M SHANK BONER Height 170.2 cm (5' 7) 12/18/2023 6:55 PM SHANK BONER Body Mass Index 23.4 12/18/2023 6:55 PM SHANK BONER Plan of Treatment Health Maintenance Due Date Last Done Comments Breast Cancer Screening-Mammogram 1968 Cervical Cancer Screening 1968 Depression Screening 1968 Hepatitis C Screening 1968 DTaP/Tdap/Td Vaccine (1 - Tdap) 1979 Hepatitis B Screening 1986 Regular Well Visit/Exam 18-64 1986 Zoster Vaccine (1 of 2) 2018 Covid-19 Vaccine (3 - 2024- season) 2025 10/26/2020, 10/05/2020 Influenza Vaccine (#1) 2025 Colon Cancer Screening-Colonoscopy 08/02/2027 08/02/2017, 07/25/2015 Colon Cancer Screening-CT Colonography Discontinued 08/02/2017, 07/25/2015 Colon Cancer Screening-DNA Stool Discontinued 08/02/2017, 07/25/2015 Colon Cancer Screening-FIT Discontinued 08/02, 07/25/2015 Colon Cancer Screening-Sigmoidoscopy Discontinued 08/02/2017, 07/25/2015 Pneumococcal vaccine <65 Aged Out No longer eligible based on patient's age to complete this topic Procedures Procedure Name Priority Date/Time Associated Diagnosis Comments COLONOSCOPY REPORT 08/02/2017 from Last 3 Months or Most Recently Relevant to Health Maintenance Results * COLONOSCOPY REPORT (08/02/2017) Anatomical Region Laterality Modality Other us Provider Scanning GI PROCEDURE ORDERABLES Final Result from Last 3 Months or Most Recently Relevant to Health Maintenance Insurance [employer] [facility] HMO/PPO Address: [facility] [address] [place] [address] [facility] Care Teams Disease Control Inspector Relationship Specialty Start Date End Date Gilberto Cain DO PCP - General Internal Medicine 09/25/22
--- OUTSIDE RECORDS SUMMARY | 2025-09-12 15:24 | XMS_ITS | Encounter Summary ---
Author Organization [facility] Address [address] [place] [address] Care Team Providers Care Modern Languages Professor Name Role Phone Choi [place] ROZ Primary Care Provider Encounter Details Date Type Department Care Team (Late st Contact Info) Description 08/09/2025 SandLinks Message Enc [facility] - [address], [address] [place] [address] [phone] Franny, [facility] Provider Specialist Social History Tobacco Use Types Packs/Day Years Used Date Smoking Tobacco: Never Passive Smoke Exposure: Never Smokeless Tobacco: Never Alcohol Use Standard Drinks/Week Comments Not Currently 0 (1 standard drink = 0.6 oz pur e alcohol) Occasionally Comments No Sex and Gender Information Value Date Recorded Sex Assigned at Female 07/20/2025 8:06 AM CDT Legal Sex Female 8:31 PM CDT Gender Identity Not on file Sexual Orientation Not on file documented as of this encounter Plan of Treatment Upcoming Encounters Date Type Department Care Team (Late st Contact Info) Description 09/14/2025 2:40 PM DIESEL ENGINE PIPE FITTER Office Visit [facility] - [facility] 3 [facility], [address] [place] [address] [phone] Robert Churchill MD [address] [place] [phone] 09/19/2025 8:25 AM DIESEL ENGINE PIPE FITTER Appointment [facility] [place] [address] Paul Berger MD [address] [place] [address] 09/19/2025 8:30 AM DIESEL ENGINE PIPE FITTER [facility] [place] [address] Christen Whyte NP [address] [place] [phone] 09/19/2025 10:00 AM DIESEL ENGINE PIPE FITTER [facility] [place] [address] Christen Whyte NP 3 [facility] [address] [place] [address] 09/20/2025 9:00 AM DIESEL ENGINE PIPE FITTER Office Visit [facility] - [facility] [address], [address] [place] [phone] Christen Whyte NP 3 [facility] [address] [place] [address] 10/03/2025 9:00 AM DIESEL ENGINE PIPE FITTER [facility] [address] [place] [address] Christen Whyte NP 3 [facility] [address] [place] [phone] documented as of this encounter Visit Diagnoses Not on filedocumented in this encounter Care Teams Modern Languages Professor Relationship Specialty Start Date End Date Tasneem Choi NP [address] [place] [phone] PCP - General Nurse Practitioner Family 07/20/25 documented as of this encounter
--- OUTSIDE RECORDS SUMMARY | 2025-09-12 15:24 | XMS_ITS | Encounter Summary ---
Author Organization [facility] Address [address] [place] [address] Care Team Providers Care Travel Nurse Name Role Phone Choi [place] ROZ Primary Care Provider Encounter Details Date Type Department Care Team (Late Contact Info) Description 08/09/2025 Credit Karma Message Enc [facility] - [address], [address] [place] [address] [phone] [facility] Result Social History Tobacco Use Types Packs/Day Years [...] Encounters Date Type Department Care Team (Late Contact Info) Description 09/14/2025 2:40 PM LOW RAW SUGAR CUTTER Office Visit [facility] - [facility] 3 [facility], [address] [place] [address] [phone] Robert Churchill MD [address] [place] [address] 09/19/2025 8:25 AM LOW RAW SUGAR CUTTER Appointment [facility] [place] [address] Paul Berger MD [address] [place] [address] 09/19/2025 8:30 AM LOW RAW SUGAR CUTTER [facility] [place] [address] Christen Whyte NP [address] [place] [phone] 09/19/2025 10:00 AM LOW RAW SUGAR CUTTER [facility] [place] [address] Christen Wyhte NP 3 [facility] [address] [place] [address] 09/20/2025 9:00 AM LOW RAW SUGAR CUTTER Office Visit [facility] - [facility] [address], [address] [place] [phone] Christen Whyte NP 3 [facility] [address] [place] [address] 10/03/2025 9:00 AM LOW RAW SUGAR CUTTER [facility] [address] [place] [address] Christen Whyte NP 3 [facility] [address] [place] [address] documented as of this encounter Visit Diagnoses Not on filedocumented in this encounter Care Teams Travel Nurse Relationship Specialty Start Date End Date Tasneem Choi NP [address] [place] [phone] PCP - General Nurse Practitioner Family 07/20/25 documented as of this encounter
--- OUTSIDE RECORDS SUMMARY | 2025-09-12 15:24 | XMS_ITS | Data Portability ---
Author Organization [facility], [facility]) Address [address] [place] [phone] Care Team Providers Care Finance Professional Name Role Phone RHIANNA CHRISTOPHER Primary Care Provider Assessment Encounter Date Assessment Date Assessment LastModified by Organization Details LastModified Time 10/04/2024 10/04/2024 54-year-old female with history of chronic venous insufficiency CEAP grade of 3 bilaterally presenting for post vein treatment ultrasound after bilateral GSV and right SSV ablation therapy. Post vein treatment ultrasound demonstrated successful closure of the right SSV without DVT. Previous ultrasound demonstrated successful closure of the bilateral GSV's There is an improvement to the edema to the bilateral lower extremities. She continues to report tiredness without pain to the lower extremities which has mildly improved s/p truncal vein treatment. We will defer any varithena at this time since she denies pain to the lower extremities and has noticed and improvement to the lower extremity edema. If she continues to have fatigue to the lower extremities Varithena treatment may be warranted. Not available 10/04/2024 13:31:12 03/23/2025 03/23/2025 54-year-old female with history of CEAP grade 3 bilaterally presenting for follow-up after bilateral truncal vein venous ablation. She complains of pain and edema after prolonged standing. Lower extremity venous ultrasound demonstrated successful treatment to the bilateral GSV's (above the knee) and SSV's without evidence of DVT. Given her lower extremity edema, pain and compressible refluxing GSV's of the calf my recommendation is Varithena. She would like to think about her decision moving forward for an with additional vein treatments at this time. Of note, she voices concern that the cosmetic appearance of her spider veins/reticular/v aricosities have not shown improvement post-procedure. I have discussed with her venous closure does not cosmetically improve the appearance of her lower extremities; our goal is to improve symptoms related to venous insufficiency. Not available 03/24/2025 09:10:43 Plan of Treatment Reminders Order Date Submit Date Provider Last Modified By Organization Details Last Modified Time Details Appointments None record ed. Lab None record ed. Referral None record ed. Procedures None record ed. Surgeries None record ed. Imaging None record ed. Medication Orders None record ed. Patient TargetsNo targets recorded. Patient InstructionsNo instructions recorded. Reason for Referral None Reported. Results Created Date Observation Date Name Description Value Unit Range Abnormal Flag Note LastModifiedBy Organization Detail LastModifiedTime 10/04/20 24 US, duple x, venou s, lower extre mity, limit ed No observ ation record ed. [email or web address] Not Available 2023 14:16:59 03/23/20 25 03/23/2025 US, duple x, venou s, lower extre mity, compl ete No observ ation record ed. [email or web address] Not Available 2024 08:51:15 Result Notes None recorded. Problems Name Problem SNOMED Code Status Onset Date Resolution Date Notes Provider Name and Address Organization Details Recorded Time Hypertensive disorder 83543478 Active 2023 Shanae benson, [place] - [facility] 10:44:40 Hyperlipidemi a 22182956 Active 2023 Shanae [place]enson[place] [facility] 4 10:58:32 Primary venous insufficiency of lower limb 027344612 Active 2023 Nola benson [place] [facility] 4 16:34:06 Edema of lower extremity 953907724 Active 2024 Nola benson [place] [facility] 5 18:36:50 Problem Notes None recorded. Procedures Surgical History Date Name Laterality Status Provider Name and Address Organization Details Recorded Time 025 OALEVenousUSreflux completed Nola Coreas [place] [facility] 03/23/2025 18:36:21 024 OA limited LE ultrasound venous completed Shanae [place]hey [place] [facility] 10/04/2024 13:34:14 024 OA limited LE ultrasound venous completed Shanae [place] [facility] 09/27/2024 16:57:22 024 OA RF vein closure completed MARTY DAILY, HER[employer] [address], [phone], [place] [facility] 09/27/2024 11:20:16 024 OA limited LE ultrasound venous completed Shanae [place] [facility] 09/20/2024 11:11:43 024 OA RF vein closure completed MARTY DAILY, HERITAGE CONSULTANT [address] [facility], [place] [address], [place], [phone], [place] [facility] and 09/20/2024 12:34:59 024 OA RF vein closure completed MATRY DAILY, HERITAGE CONSULTANT [address], [phone], [place] [facility] 09/13/2024 15:53:44 024 OALEVenousUSreflux completed Nola [place]as [place] [facility] 07/10/2024 16:33:40 017 Hysterectomy completed Shanae [place] [facility] 07/10/2024 10:44:19 Imaging Results None recorded. Procedure Notes None recorded. Medical Equipment None Reported. Allergies Allergen ID Allergen Name Allergen Category Reaction Reaction Severity Criticality Documentation Date Start Date Code Code System Note Provider Name and Address Organization Details Recorded Time 34611 Product containin g penicilli n (product) medicatio n rash moderate Not available 07/10/2024 08903 8001 SNOMED Shanae Hisaman benson [place] - [facility] 10:44:05 Medications Name Sig Start Date Stop Date Status Note LastModified by Organization Details LastModified Time celecoxib 200 mg capsule TAKE 1 CAPSULE BY MOUTH EVERY DAY active Not Available Not Available No t Available ondansetron 8 mg disintegrati ng tablet 8 MG ORALLY EVERY 6 HOURS NEEDED FOR NAUSEA AND VOMITING active Not Available Not Available No t Available ezetimibe 10 mg tablet TAKE 1 TABLET BY MOUTH EVERY DAY active Not Available Not Available No t Available bupropion HCl XL 150 mg 24 hr tablet, extended release TAKE 1 TABLET BY MOUTH EVERY DAY IN THE MORNING active Not Available Not Available No t Available nitrofuranto in monohydrate/ macrocrystal s 100 mg capsule TAKE 1 CAPSULE BY MOUTH EVERY 12 HOURS FOR 5 DAYS MUST ADMINISTER WITH A MEAL/FOOD active Not Available Not Available No t Available eszopiclone 2 mg tablet TAKE 1 TABLET BY MOUTH EVERY DAY AT BEDTIME NEEDED FOR SLEEP active Not Available Not Available No t Available Zepbound 15 mg/0.5 mL subcutaneous pen injector INJECT 15 MG SUBCUTANEOU SLY ONCE WEEKLY active Not Available Not Available No t Available Vitals Date Recorded Body height Body mass index (BMI) Body weight Heart rate Systolic And Diastolic Provider Name and Address Organization Details Last Updated DateTime 03/23/2025 170.18 cm 23.2 kg/m2 78012.67 g 77 /min 126/70 mm[Hg] Jennifer Wangn [place] [facility] 03/23/2025 11:07:14 Date Recorded Body height Provider Name an d Address Organization Details Last Updated DateTime 09/27/2024 170.18 cm Shanae Felicita [facility] 09/27/2024 11:00:30 Social History Question Answer Notes LastModified by Organizat ion Details LastModified Time Tobacco Smoking Status Never Smoker Shanae Hisaman benson [place] - [facility] 07/10/2024 10:44:16 Which Illicit Or Recreational Drugs Have You Used? None Information not available 07/10/2024 What Is The Highest Grade Or Level Of School You Have Completed Or The Highest Degree You Have Received? [id number] Information not available 07/10/2024 What Was The Date Of Your Most Recent Tobacco Screening? 03/23/2025 [email or web address] Information not available 03/23/2025 How Much Tobacco Do You Smoke? No Information not available 07/10/2024 Sex: Unknown Functional Status Question Answer Note LastModified by Organizat ion Details LastModified Time What is your level of alcohol consumption? 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 Family History Nothing Reported. Medical History Condition Response Anxiety Disorder N Varicose Veins Y Anticoagulation therapy N Diabetes N Coronary Artery Disease N Bleeding Disorder N Hyperlipidemia Y Cancer N Stroke N Asthma N COPD N Clotting Disorder N Pacemaker N Anemia N Neurologic Disorder N Hepatitis N Genitourinary Disease N Heart Disease N Ulcers N Gastrointestinal Disease N Pulmonary Embolism N Deep Vein Thrombosis N Hypertension Y Kidney Disease N Gynecological History Statement/Question Response N N N N Current Control Method Hysterectom y Sexually Active? Y Obstetrics History GPAL:G 0 P 0 0 0 0 Past Encounters Encounter ID Performer Location Encounter Start Date Encounter Closed Date Diagnosis/Indication Diagnosis SNOMED-CT Code Diagnosis ICD10 Code Diagnosis IMO Codes Diagnosis Note [id number] Julissa Barrientos MD [facility] [address] [phone] 07/10/2024 09:59:24 07/11/2024 12:50:05 Edema of lower extremity 160523401 R60.0 Varicose v eins of lower extremity 46274234 I83.893 [id number] Julissa Barrientos [place] [facility] [address] [phone] 07/10/2024 11:29:03 07/11/2024 12:55:29 Primary venous insufficiency of lower limb 422540887 I87.[id number] [facility] [address] [place], [place] [phone] 09/13/2024 13:46:58 09/13/2024 15:56:23 Varicose veins of lower extremity 37861625 I83.893 [id number] Julissa Barrientos MD [facility] [address] [facility],[address] [address] 09/20/2024 10:43:10 09/20/2024 12:23:33 Varicose veins of lower extremity 04512035 I83.893 [id number] Julissa Barrientos MD [facility] [address] [address] 09/20/2024 11:05:48 09/20/2024 11:34:23 Varicose veins of lower extremity 49100591 I83.893 [id number] Julissa Barrientos MD [facility] [address] [place] [phone] 09/27/2024 09:48:03 09/27/2024 11:21:32 Varicose veins of lower extremity 78044430 I83.893 [id number] Julissa Barrientos MD [facility] [address] [address] 09/27/2024 16:56:53 09/27/2024 21:28:57 Varicose veins of lower extremity 74874658 I83.893 [id number] Julissa Barrientos MD [facility] [address] [address] 10/04/2024 09:51:03 10/04/2024 13:38:41 Edema of lower extremity 370219666 R60.0 Varicose v eins of lower extremity 04677459 I83.893 [id number] Julissa Barrientos MD [facility] [address] [address] 10/04/2024 13:31:34 10/04/2024 13:38:03 Varicose veins of lower extremity 49263565 I83.893 Edema of l ower extremity 140882492 R60.0 [id number] Julissa Barrientos MD [facility] [address] [place] [address],[place] [address] ( [place] [address] 03/23/2025 10:48:33 03/26/2025 09:57:54 Primary venous insufficiency of lower limb 816137845 I87.2 Edema of l ower extremity 341986315 R60.0 [id number] Julissa Barrientos MD [facility] [address] [address] 03/23/2025 11:08:35 03/26/2025 10:01:36 Edema of lower extremity 158408955 R60.0 [id number] Health Concerns Section Related Observation LastModified by Organization Detai ls LastModified Time None Recorded Concern Status LastModified by Organization Details LastModified Time None Recorded Advance Directives Directive None Recorded Payers Insurance Date Sequence Insurance Name Policy Number Policy Hinojosa Covered Member ID Hinojosa Member ID Guarantor Name 03/26/2025 1 [facility] [id number] Birgitander Estrada [id number] Birgit Estrada Notes Date Note Type Note Provider Name and Address Organization Details Recorded Time 03/23/2025 text/html She is presenting she is presenting for follow-up post lower truncal extremity venous closure. She complains of lower extremity swelling after prolonged standing and [place] [address], [address], [facility] and 03/24/2025 09:10:46 OBGyn Episode No OBEpisode recorded.
--- OUTSIDE RECORDS SUMMARY | 2025-09-12 15:24 | XMS_ITS | Clinical Summary ---
Author Organization [facility] Address [address] [place] [address] Care Team Providers Care Load Checker Name Role Phone [facility] [place] ROZ Primary Care Provider [phone] Allergies Active Allergy Reactions Criticality Noted Date Comments Penicillins Hives,Itching,Rash Medium 02/27/2009 Medications celecoxib (CELEBREX) 200 MG capsule Take 1 capsule (200 mg total) by mouth daily. Active pramipexole (MIRAPEX) 0.125 MG tablet Take 1 tablet (0.125 mg total) by mouth nightly at bedtime. 05/18/2025 Active ZEPBOUND 15 MG/0.5ML injection Inject 15 mg into the skin once a week. 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 Osteoarthrosis 05/20/2022 Arthralgia of right knee 02/18/2022 Edema 03/03/2011 Mitral valve disease 03/03/2011 Encounters Date Type Department Care Team Description 09/10/2025 Orders Only [facility] [place] [address] Paul Berger MD 08/29/2025 Pre-Procedure Call [facility] [place] [address] Paul Berger MD Preprocedure Call 08/27/2025 Telephone [facility] Multispecialty Care - [facility] [address], [address] [place] [address] Charisse Whyte, ROZ Results (Called pt on 08/27/2025 regarding lab results, no answer. LVM) 08/24/2025 11:45 AM FUR DRESSING SUPERVISOR - 08/24/2025 11:59 PM FUR DRESSING SUPERVISOR Hospital Encounter [facility] MRI [address] [place] [address] Charisse Whyte, CELLOPHANE BATH MIXER Discharge Disposition: Home or Self Care (Routine Discharge) 08/24/2025 Travel 08/09/2025 MyChart Message [facility] [address], [address] [place] [address] Mychart, [facility] Provider Specialist 08/09/2025 MyChart Message Enc [facility] - [address], [address] [place] [phone] Mychart, [facility] Provider Specialist 08/09/2025 MyChart Message Enc [facility] - [address], [address] [place] [phone] Mychart, [facility] Provider Result 08/08/2025 Results Follow-Up [facility] - [facility] [address], [address] [place] [phone] Charisse Whyte, CELLOPHANE BATH MIXER CTA HEAD+NECK, MRI THOR SPINE WWO CON, MRI CERV SPINE WWO CON 07/30/2025 12:33 PM CDT - 07/30/2025 11:59 PM CDT Hospital Encounter [facility] [address] [facility] [place] [address] Charisse Whyte, CELLOPHANE BATH MIXER Discharge Disposition: Home or Self Care (Routine Discharge) 07/30/2025 Travel 07/20/2025 8:00 AM CDT Office Visit [facility] Medical Group Multispecialty Care - [facility] [address], [address] [place] [phone] Charisse Whyte NP New Patient (Lost of balance, memory.) 07/20/2025 Travel from Last 3 Months Family History Medical History Relation Comments Cancer Brother 1 Colon Cancer Brother 1 Liver cancer Brother 1 CHF Brother 2 Hypertension Brother 2 Irregular heart beat Brother 2 Sleep Apnea Brother 2 Cancer Father Heart Attack Maternal Grandfather Hypertension Maternal Grandfather Cancer Maternal Grandmother Hypertension Maternal Grandmother Ovarian Cancer Maternal Grandmother Stroke Maternal Grandmother Heart Attack Mother Hypertension Mother Stroke Mother Heart Attack Paternal Grandfather Cancer Paternal Grandmother Cervical cancer Paternal Grandmother Relation Status Comments Brother 1 Brother 2 Alive Father Maternal Grandfather Maternal Grandmother Mother Paternal Grandfather Paternal Grandmother Social History Tobacco Use Types Packs/Day Years [...] on file Sexual Orientation Not on file Last Filed Vital Signs Vital Sign Reading Time Taken Comments Blood Pressure 137/76 07/20/2025 8:38 AM CDT Pulse 68 07/20/2025 8:38 AM CDT Temperature - - Respiratory Rate - - Oxygen Saturation 99% 07/20/2025 8:38 AM CDT Inhaled Oxygen Concentration - - Weight 70 kg (154 lb 5.2 oz) 08/29/2025 12:01 AM FUR DRESSING SUPERVISOR Height 167.6 cm (5' 6) 08/29/2025 12:01 AM FUR DRESSING SUPERVISOR Body Mass Index 24.91 08/29/2025 12:01 AM FUR DRESSING SUPERVISOR Plan of Treatment Upcoming Encounters Date Type Department Care Team (Late st Contact Info) Description 09/14/2025 2:40 PM FUR DRESSING SUPERVISOR Office Visit [facility] Mult[facility]pecial[facility] Care - [facility] [address] [facility] [facility] [place] [phone] Robert Churchill MD [address] [facility] [place] [address] 09/19/2025 8:25 AM FUR DRESSING SUPERVISOR [facility] [place] [address] Paul Berger MD [address] [place] [id number] 09/19/2025 8:30 AM FUR DRESSING SUPERVISOR [facility]ointment [facility] [place] [address] Charisse Whyte NP [address] [phone] 09/19/2025 10:00 AM FUR DRESSING SUPERVISOR [facility] [place] [address] Charisse Whyte NP 3 [facility] [address] [place] [address] 09/20/2025 9:00 AM FUR DRESSING SUPERVISOR Office Visit [facility] Multispecialty Care - [facility] [address], [address] [place] [phone] Charisse Whyte NP [address] [facility] [address] [place] [address] 10/03/2025 9:00 AM FUR DRESSING SUPERVISOR [facility] [address] [place] [address] Charisse Whyte NP [address] [place] [address] Health Maintenance Due Date Last Done Comments Colorectal Cancer Screening Colonoscopy (10 Years) 1968 Annual Physical 1971 Hepatitis C 1986 DTaP, Tdap and Td Vaccines (1 - Tdap) 1987 Hepatitis B Vaccines (1 of 3 - 19+ 3-dose series) 1987 Pneumococcal Vaccine: 50+ Years (1 of 2 - PCV) 1987 Mammogram Screening 2008 Zoster Vaccines (1 of 2) 2018 PHQ-2 (Physician [place]) 10/18/2024 COVID-19 Vaccine ( season) 2025 11/18/2020, 11/01/2020, 10/26/2020, Additional history exists Influenza Adult (#1) 2025 08/04/2024, 09/14/20 23 Hepatitis A Vaccines Aged Out No long er eligible based on patient's age to complete this topic Meningococcal B Vaccine Aged Out No l onger eligible based on patient's age to complete this topic Meningococcal Vaccine Aged Out No son carolann eligible based on patient's age to complete this topic RSV Immunizations Under 20 Months Aged Out No longer eligible based on patient's age to complete this topic Procedures Procedure Name Priority Date/Time Associated Diagnosis Comments MRI CERV SPINE WWO CON Routine 08/24/2025 1:05 PM FUR DRESSING SUPERVISOR Radiculopathy, cervical region Myelopathy (CMS/HCC HHS/HCC) MRI THOR SPINE WWO CON Routine 08/24/2025 1:05 PM FUR DRESSING SUPERVISOR Myelopathy (CMS/HCC HHS/HCC) CTA HEAD+NECK Routine 07/30/2025 1:09 PM CDT Vertebrobasilar artery stenosis from Last 3 Months Results * MRI CERV SPINE WWO CON (08/24/2025 1:05 PM FUR DRESSING SUPERVISOR) Anatomical Region Laterality Modality Spine Magnetic Resonan ce 08/24/2025 8:14 PM FUR DRESSING SUPERVISOR Impressions 08/24/2025 8:21 PM FUR DRESSING SUPERVISOR IMPRESSION: 1. Focal T2 hyperintensities within the thoracic spinal cord at the T4-5 and T9 levels which could be seen with demyelinating disease in the appropriate clinical setting. No abnormal enhancement of the thoracic spinal cord. 2. Moderate multilevel cervical spondylosis, as described above. Referred By: CHARISSE WHYTE Interpreted By: Paul Khan MD, 08/24/2025 8:14 PM Narrative 08/24/2025 8:21 PM FUR DRESSING SUPERVISOR [address] [address] EXAMINATION: MRI CERV SPINE WWO CON, MRI THOR SPINE WWO CON, 08/24/2025 8:14 PM TECHNIQUE: Multiplanar multisequence magnetic resonance images of the cervical and thoracic spine were obtained before and after the administration of 14 mL of Dotarem injected through the IV, without evidence of adverse reaction. HISTORY: Chronic back pain, new onset numbness in both arms and legs which started 6 weeks ago COMPARISON: None available FINDINGS: MRI CERVICAL SPINE: The cervical vertebral bodies and facets are well aligned. The cervical vertebral body heights are preserved. There is intervertebral disc height loss at C5-6 and to a lesser extent at C6-7 with endplate degenerative changes at these levels. Incomplete segmentation involving the C2 and C3 vertebral bodies. The cervical spinal cord has a normal signal throughout its course. There is no abnormal enhancement of the cervical spinal cord. C2-3: No significant spinal canal stenosis. Uncovertebral joint hypertrophy. Mild left neural foraminal stenosis. No right neural foraminal stenosis. C3-4: Disc bulge with left paracentral disc protrusion impressing the ventral thecal sac. Moderate spinal canal stenosis. Uncovertebral joint hypertrophy. Severe left neural foraminal stenosis. Mild right neural foraminal stenosis. C4-5: No significant spinal canal stenosis. Uncovertebral joint hypertrophy. Moderate left neural foraminal stenosis. Mild right neural foraminal stenosis. C5-6: Disc bulge impressing the ventral thecal sac. Severe spinal canal stenosis. Uncovertebral joint hypertrophy. Severe left neural foraminal stenosis. Moderate to severe right neural foraminal stenosis. C6-7: Disc bulge impressing the ventral thecal sac. Moderate spinal canal stenosis. Uncovertebral joint hypertrophy. Mild to moderate bilateral neural foraminal stenosis. C7-T1: No significant spinal canal or neural foraminal stenosis. MRI THORACIC SPINE: There are 12 rib-bearing thoracic-type vertebral bodies and facets are well aligned. The thoracic vertebral body heights are preserved. There is no abnormal prevertebral or paravertebral soft tissue swelling. T2 hyperintensities within the ventral aspect of the thoracic spinal cord at the T4-5 level (on series 24 image 80, series 21 image 16, series 22 image 15) as well as within the right lateral aspect of the T9 (best seen on series 24 image 9, series 21 image 36, series 22 image 36). There is no abnormal enhancement of the thoracic spinal cord.. The thoracic spinal cord otherwise has a normal signal throughout its course. Procedure Note Paul Khan MD - 08/24/[address] [address] EXAMINATION: MRI CERV SPINE O CON, MRI THOR SPINE [facility] CON, :14 PM TECHNIQUE: Multiplanar multisequence magnetic resonance images of thecervical and thoracic spine were obtained before and after theadministration of 14 mL of Dotarem injected through the IV, withoutevidence of adverse reaction. HISTORY: Chronic back pain, new onset numbness in both arms and legs whichstarted 6 weeks ago COMPARISON: None available FINDINGS: MRI CERVICAL SPINE: The cervical vertebral bodies and facets are wellaligned. The cervical vertebral body heights are preserved. There isintervertebral disc height loss at C5-6 and to a lesser extent at C6-7with endplate degenerative changes at these levels. Incompletesegmentation involving the C2 and C3 vertebral bodies. The cervicalspinal cord has a normal signal throughout its course. There is noabnormal enhancement of the cervical spinal cord. C2-3: No significant spinal canal stenosis. Uncovertebral jointhypertrophy. Mild left neural foraminal stenosis. No right neuralforaminal stenosis. C3-4: Disc bulge with left paracentral disc protrusion impressing theventral thecal sac. Moderate spinal canal stenosis. Uncovertebral jointhypertrophy. Severe left neural foraminal stenosis. Mild right neuralforaminal stenosis. C4-5: No significant spinal canal stenosis. Uncovertebral jointhypertrophy. Moderate left neural foraminal stenosis. Mild right neuralforaminal stenosis. C5-6: Disc bulge impressing the ventral thecal sac. Severe spinal canalstenosis. Uncovertebral joint hypertrophy. Severe left neural foraminalstenosis. Moderate to severe right neural foraminal stenosis. C6-7: Disc bulge impressing the ventral thecal sac. Moderate spinal canalstenosis. Uncovertebral joint hypertrophy. Mild to moderate bilateralneural foraminal stenosis. C7-T1: No significant spinal canal or neural foraminal stenosis. MRI THORACIC SPINE: There are 12 rib-bearing thoracic-type vertebralbodies and facets are well aligned. The thoracic vertebral body heightsare preserved. There is no abnormal prevertebral or paravertebral softtissue swelling. T2 hyperintensities within the ventral aspect of thethoracic spinal cord at the T4-5 level (on series 24 image 80, series 21image 16, series 22 image 15) as well as within the right lateral aspectof the T9 (best seen on series 24 image 9, series 21 image 36, series 22image 36). There is no abnormal enhancement of the thoracic spinal cord..The thoracic spinal cord otherwise has a normal signal throughout itscourse. IMPRESSION: 1. Focal T2 hyperintensities within the thoracic spinal cord at the T4-5and T9 levels which could be seen with demyelinating disease in theappropriate clinical setting. No abnormal enhancement of the thoracicspinal cord. 2. Moderate multilevel cervical spondylosis, as described above. Referred By: CHARISSE WHYTE Interpreted By: Paul Khan MD, 08/24/2025 8:14 PM us Charisse Whyte [employer]LLOPH[employer] BATH MIXER MRI Final Result * MRI THOR SPINE WWO CON (08/24/2025 1:05 PM FUR DRESSING SUPERVISOR) Anatomical Region Laterality Modality Spine Magnetic Resonan ce 08/24/2025 8:14 PM FUR DRESSING SUPERVISOR Impressions 08/24/2025 8:21 PM FUR DRESSING SUPERVISOR IMPRESSION: 1. Focal T2 hyperintensities within the thoracic spinal cord at the T4-5 and T9 levels which could be seen with demyelinating disease in the appropriate clinical setting. No abnormal enhancement of the thoracic spinal cord. 2. Moderate multilevel cervical spondylosis, as described above. Referred By: CHARISSE WHYTE Interpreted By: Paul Khan MD, 08/24/2025 8:14 PM Narrative 08/24/2025 8:21 PM FUR DRESSING SUPERVISOR [address] [address] EXAMINATION: MRI CERV SPINE WWO CON, MRI THOR SPINE WWO CON, 08/24/2025 8:14 PM TECHNIQUE: Multiplanar multisequence magnetic resonance images of the cervical and thoracic spine were obtained before and after the administration of 14 mL of Dotarem injected through the IV, without evidence of adverse reaction. HISTORY: Chronic back pain, new onset numbness in both arms and legs which started 6 weeks ago COMPARISON: None available FINDINGS: MRI CERVICAL SPINE: The cervical vertebral bodies and facets are well aligned. The cervical vertebral body heights are preserved. There is intervertebral disc height loss at C5-6 and to a lesser extent at C6-7 with endplate degenerative changes at these levels. Incomplete segmentation involving the C2 and C3 vertebral bodies. The cervical spinal cord has a normal signal throughout its course. There is no abnormal enhancement of the cervical spinal cord. C2-3: No significant spinal canal stenosis. Uncovertebral joint hypertrophy. Mild left neural foraminal stenosis. No right neural foraminal stenosis. C3-4: Disc bulge with left paracentral disc protrusion impressing the ventral thecal sac. Moderate spinal canal stenosis. Uncovertebral joint hypertrophy. Severe left neural foraminal stenosis. Mild right neural foraminal stenosis. C4-5: No significant spinal canal stenosis. Uncovertebral joint hypertrophy. Moderate left neural foraminal stenosis. Mild right neural foraminal stenosis. C5-6: Disc bulge impressing the ventral thecal sac. Severe spinal canal stenosis. Uncovertebral joint hypertrophy. Severe left neural foraminal stenosis. Moderate to severe right neural foraminal stenosis. C6-7: Disc bulge impressing the ventral thecal sac. Moderate spinal canal stenosis. Uncovertebral joint hypertrophy. Mild to moderate bilateral neural foraminal stenosis. C7-T1: No significant spinal canal or neural foraminal stenosis. MRI THORACIC SPINE: There are 12 rib-bearing thoracic-type vertebral bodies and facets are well aligned. The thoracic vertebral body heights are preserved. There is no abnormal prevertebral or paravertebral soft tissue swelling. T2 hyperintensities within the ventral aspect of the thoracic spinal cord at the T4-5 level (on series 24 image 80, series 21 image 16, series 22 image 15) as well as within the right lateral aspect of the T9 (best seen on series 24 image 9, series 21 image 36, series 22 image 36). There is no abnormal enhancement of the thoracic spinal cord.. The thoracic spinal cord otherwise has a normal signal throughout its course. Procedure Note Paul Khan MD - 08/24/[address] [address] EXAMINATION: MRI CERV SPINE WWO CON, MRI THOR SPINE WWO CON, :14 PM TECHNIQUE: Multiplanar multisequence magnetic resonance images of thecervical and thoracic spine were obtained before and after theadministration of 14 mL of Dotarem injected through the IV, withoutevidence of adverse reaction. HISTORY: Chronic back pain, new onset numbness in both arms and legs whichstarted 6 weeks ago COMPARISON: None available FINDINGS: MRI CERVICAL SPINE: The cervical vertebral bodies and facets are wellaligned. The cervical vertebral body heights are preserved. There isintervertebral disc height loss at C5-6 and to a lesser extent at C6-7with endplate degenerative changes at these levels. Incompletesegmentation involving the C2 and C3 vertebral bodies. The cervicalspinal cord has a normal signal throughout its course. There is noabnormal enhancement of the cervical spinal cord. C2-3: No significant spinal canal stenosis. Uncovertebral jointhypertrophy. Mild left neural foraminal stenosis. No right neuralforaminal stenosis. C3-4: Disc bulge with left paracentral disc protrusion impressing theventral thecal sac. Moderate spinal canal stenosis. Uncovertebral jointhypertrophy. Severe left neural foraminal stenosis. Mild right neuralforaminal stenosis. C4-5: No significant spinal canal stenosis. Uncovertebral jointhypertrophy. Moderate left neural foraminal stenosis. Mild right neuralforaminal stenosis. C5-6: Disc bulge impressing the ventral thecal sac. Severe spinal canalstenosis. Uncovertebral joint hypertrophy. Severe left neural foraminalstenosis. Moderate to severe right neural foraminal stenosis. C6-7: Disc bulge impressing the ventral thecal sac. Moderate spinal canalstenosis. Uncovertebral joint hypertrophy. Mild to moderate bilateralneural foraminal stenosis. C7-T1: No significant spinal canal or neural foraminal stenosis. MRI THORACIC SPINE: There are 12 rib-bearing thoracic-type vertebralbodies and facets are well aligned. The thoracic vertebral body heightsare preserved. There is no abnormal prevertebral or paravertebral softtissue swelling. T2 hyperintensities within the ventral aspect of thethoracic spinal cord at the T4-5 level (on series 24 image 80, series 21image 16, series 22 image 15) as well as within the right lateral aspectof the T9 (best seen on series 24 image 9, series 21 image 36, series 22image 36). There is no abnormal enhancement of the thoracic spinal cord..The thoracic spinal cord otherwise has a normal signal throughout itscourse. IMPRESSION: 1. Focal T2 hyperintensities within the thoracic spinal cord at the T4-5and T9 levels which could be seen with demyelinating disease in theappropriate clinical setting. No abnormal enhancement of the thoracicspinal cord. 2. Moderate multilevel cervical spondylosis, as described above. Referred By: CHARISSE WHYTE Interpreted By: Paul Khan MD, 08/24/2025 8:14 PM Charisse Whyte CELLOPHANE BATH MIXER MRI Final Result * CTA HEAD+NECK (07/30/2025 1:09 PM CDT) Anatomical Region Laterality Modality Head, Neck Computed Tomogra phy 08/07/2025 1:19 PM CDT Impressions 08/07/2025 1:30 PM CDT IMPRESSION: 1. Patent proximal intracranial arterial vasculature. 2. No significant stenosis involving the proximal internal carotid arteries. Patent carotid and vertebral arteries throughout their course. 3. Saccular outpouching involving the right paramedian aspect of the anterior communicating artery that may represent an aneurysm. 4. Saccular outpouching along the posterior margin of the distal cavernous segment of the right internal carotid artery that may represent an aneurysm. 5. Saccular outpouching involving the distal aspect of the cavernous segment of the left internal carotid artery that may represent an infundibulum versus an aneurysm. 6. Nonemergent neurointerventional radiology consultation and/or digital subtraction angiography could be beneficial for further characterization. Ordered By: CHARISSE WHYTE Interpreted By: Paul Khan MD, 08/07/2025 1:19 PM Narrative 08/07/2025 1:30 PM CDT [place] [id number] Examination: CTA HEAD+NECK, 07/30/2025 12:34 PM. Technique: Computed tomographic images of the head and neck were obtained after the administration of 100 mL of Isovue-370 injected through the IV, without evidence of an adverse reaction. Additional coronal and sagittal reformatted as well as maximum intensity projection images were generated at a separate workstation. Carotid stenoses were measured according to NASCET criteria. A dose lowering technique was used for this procedure, which may include, but is not limited to, dose reduction technique, automated exposure control, the use of iterative reconstruction, and ALARA (As Low As Reasonably Achievable) / Image Gently techniques. Clinical history: Loss of balance, more to the right side. Memory issues, losing thoughts Comparison: None available Findings: CTA HEAD: The petrous and cavernous portions of the internal carotid arteries are patent. Anterior cerebral arteries are patent. 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 There is a 0.3 x 0.3 cm saccular outpouching along the posterior margin of the distal cavernous segment of the right internal carotid artery (best seen on series 7 image 78, series 10 image 112). There is a 0.2 cm focal saccular outpouching involving the distal aspect of the cavernous segment of the left internal carotid artery (best seen on series 10 image 113, series 7 image 68) which could represent an infundibulum versus an aneurysm. Codominant vertebral artery posterior circulation. The basilar artery is patent. Posterior cerebral arteries are patent. There is no extra-axial collection. No abnormally enhancing intracranial parenchyma or mass. The ventricles are normal in size. The basal cisterns appear normal. Orbital contents appear normal. Paranasal sinuses and mastoid air cells are well aerated. CTA NECK: Conventional 3 vessel origin arising from the aortic arch. The common carotid arteries are patent. No significant stenosis involving the proximal internal carotid arteries. Vertebral arteries are patent throughout their course. The parotid and submandibular glands appear normal. The pharyngeal and glottic soft tissues appear normal. Lung apices are well aerated. 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 Procedure Note Paul Khan MD - 08/07/2025 [place] [address] [place] [address] Examination: CTA HEAD+NECK, 07/30/2025 12:34 PM. Technique: Computed tomographic images of the head and neck were obtainedafter the administration of 100 mL of Isovue-370 injected through the IV,without evidence of an adverse reaction. Additional coronal and sagittalreformatted as well as maximum intensity projection images were generatedat a separate workstation. Carotid stenoses were measured according toNASCET criteria. A dose lowering technique was used for this procedure,which may include, but is not limited to, dose reduction technique,automated exposure control, the use of iterative reconstruction, and ALARA(As Low As Reasonably Achievable) / Image Gently techniques. Clinical history: Loss of balance, more to the right side. Memory issues,losing thoughts Comparison: None available Findings: CTA HEAD: The petrous and cavernous portions of the internal carotidarteries are patent. Anterior cerebral arteries are patent. There is a 0.4x 0.4 x 0.3 cm saccular dilation involving the right paramedian aspect ofthe anterior communicating artery (best seen on series 10 image 105,series 7 image 73), suggestive of an anterior communicating arteryaneurysm. There is a 0.3 x 0.3 cm saccular outpouching along the posteriormargin of the distal cavernous segment of the right internal carotidartery (best seen on series 7 image 78, series 10 image 112). There is a0.2 cm focal saccular outpouching involving the distal aspect of thecavernous segment of the left internal carotid artery (best seen on image 113, series 7 image 68) which could represent an infundibulumversus an aneurysm. Codominant vertebral artery posterior circulation. Thebasilar artery is patent. Posterior cerebral arteries are patent. There is no extra-axial collection. No abnormally enhancing intracranialparenchyma or mass. The ventricles are normal in size. The basal cisternsappear normal. Orbital contents appear normal. Paranasal sinuses andmastoid air cells are well aerated. CTA NECK: Conventional 3 vessel origin arising from the aortic arch. Thecommon carotid arteries are patent. No significant stenosis involving theproximal internal carotid arteries. Vertebral arteries are patentthroughout their course. The parotid and submandibular glands appear normal. The pharyngeal andglottic soft tissues appear normal. 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 IMPRESSION: 1. Patent proximal intracranial arterial vasculature. 2. No significant stenosis involving the proximal internal carotidarteries. Patent carotid and vertebral arteries throughout their course. 3. Saccular outpouching involving the right paramedian aspect of theanterior communicating artery that may represent an aneurysm. 4. Saccular outpouching along the posterior margin of the distalcavernous segment of the right internal carotid artery that may representan aneurysm. 5. Saccular outpouching involving the distal aspect of the cavernoussegment of the left internal carotid artery that may represent aninfundibulum versus an aneurysm. 6. Nonemergent neurointerventional radiology consultation and/or digitalsubtraction angiography could be beneficial for furthercharacterization. Ordered By: CHARISSE WHYTE Interpreted By: Paul Khan MD, 08/07/2025 1:19 PM us Charisse Whyte CELLOPHANE BATH MIXER CT Final Result from Last 3 Months Insurance [employer] Care Teams Load Checker Relationship Specialty Start Date End Date Tasneem Choi NP [address] [place] [phone] PCP - General Nurse Practitioner Family 07/20/25
--- OUTSIDE RECORDS SUMMARY | 2025-09-12 15:24 | XMS_ITS | Encounter Summary ---
Author Organization [facility] Address [address] [place] [address] Care Team Providers Care Raveler Name Role Phone Tasneem Choi NP Primary Care Provider [phone] Reason for Referral * Imaging (Routine) - Authorized Specialty Diagnoses / Procedures Referred By Contac t Referred To Contact Diagnoses MS (multiple sclerosis) Procedures IR LUMB PUNCTURE DIAGNOSTIC Christen Whyte NP [address] [facility] [address] [place] [address] Phone: tel: fax: Referral ID Status Reason Start Date Expiration Date V isits Requested Visits Authorized [id number] Authorized 08/27/2025 08/27/2026 1 2 NICAL BUSINESS ANALYST * Imaging (Routine) - Pending Review Specialty Diagnoses / Procedures Referred By Contac t Referred To Contact RADIOLOGY Diagnoses MS (multiple sclerosis) Procedures MRI BRAIN WWO CON Christen Whyte NP 3 [facility] [address] [place] [address] Phone: tel: fax: Referral ID Status Reason Start Date Expiration Date V isits Requested Visits Authorized [id number] Pending Review 08/27/2025 08/27/2026 1 1 NICAL BUSINESS ANALYST * Surgical (Urgent) - Authorized Specialty Diagnoses / Procedures Referred By Contac t Referred To Contact NEUROSURGERY Diagnoses Cervical spinal stenosis Imbalance Procedures OFFICE/OUTPATIENT NEW [facility] 30-44 MINUTES OFFICE/OUTPT VISIT,NEW,LEVL IV OFFICE/OUTPT VISIT,NEW,LEVL V OFFICE/OUTPT VISIT,EST,LEVL III OFFICE/OUTPT VISIT,EST,LEVL IV OFFICE/OUTPT VISIT,EST,LEVL V Christen Whyte NP [address] [facility] [address] [place] [address] Phone: tel: fax: Robert Churchill MD [address] [place] [address] Phone: tel: fax: Referral ID Status Reason Start Date Expiration Date Visits Requested Visits Authorized [id number] Authorized Specialty Services 09/27/2026 99 99 NICAL BUSINESS ANALYST * Consultation (Routine) - Pending Review Specialty Diagnoses / Procedures Referred By Adilia allen Referred To Contact NEUROLOGY Diagnoses Cerebral aneurysm ([facility]/HCC) Procedures OFFICE/OUTPATIENT NEW LOW [facility]DM 30-44 MINUTES OFFICE/OUTPT VISIT,NEW,LEVL IV OFFICE/OUTPT VISIT,NEW,LEVL V OFFICE/OUTPT VISIT,EST,LEVL III OFFICE/OUTPT VISIT,EST,LEVL IV OFFICE/OUTPT VISIT,EST,LEVL V Christen Whyte NP [address] [facility] [address] [place], [place] [address] Phone: tel: fax: Marycarmen Lentz PA [address] [facility] [address] [place] [address] Phone: tel: fax: Referral ID Status Reason Start Date Expiration Date Visits Requested Visits Authorized [id number] Pending Review Specialty Services 08/08/2026 99 99 Encounter Details Date Type Department Care Team (Latest Contact Info) Description 08/08/2025 [facility] 3 [facility], [address] [place] [phone] Christen Whyte, ROZ [address] [facility] [address] [place] [phone] CTA HEAD+NECK, MRI THOR SPINE WWO CON, MRI CERV SPINE WWO CON Social History Tobacco Use Types Packs/Day Years [...] st Contact Info) Description 09/14/2025 2:40 PM TECHNICAL BUSINESS ANALYST [facility] 3 [facility], [address] [place] [phone] Robert Churchill MD [address] [place] [address] 09/19/2025 8:25 AM TECHNICAL BUSINESS ANALYST Appointment [facility] [place] [address] Paul Berger MD [address] [place] [address] 09/19/2025 8:30 AM TECHNICAL BUSINESS ANALYST Appointment [facility] [place] [address] Christen Whyte, ASSOCIATE PROFESSOR OF ANTHROPOLOGY [address] [phone] 09/19/2025 10:00 AM TECHNICAL BUSINESS ANALYST Appointment [facility] [address] Christen Whyte, ASSOCIATE PROFESSOR OF ANTHROPOLOGY [address] [facility] [address] [place] [address] 09/20/2025 9:00 AM TECHNICAL BUSINESS ANALYST Office Visit [facility] Multispecialty Care - [facility] [address] [facility], [address] [place] [address] Christen Whyte, ROZ [address] [facility] [address] [place] [address] 10/03/2025 9:00 AM TECHNICAL BUSINESS ANALYST Appointment [facility] [address] [facility] [place] [address] Christen Whyte, ASSOCIATE PROFESSOR OF ANTHROPOLOGY [address] [facility] [address] [place] [address] Scheduled Orders Name Type Priority Associated Diagnoses Order Schedule MRI BRAIN WWO CON MRI Routine MS (multiple sclerosis) Expected: 08/27/2025, Expires: 08/27/2026 IR LUMB PUNCTURE DIAGNOSTIC Interventional Radiology Routine MS (multiple sclerosis) Expected: 08/27/2025, Expires: 10/27/2025 CULTURE, CSF W/ GRAM STAIN Microbiology Routine MS (multiple sclerosis) Expected: 08/27/2025, Expires: 08/27/2026 IGG SYNTHESIS RATE *CSF AND SERUM REQUIRED* Lab Routine MS (multiple sclerosis) Expected: 08/27/2025, Expires: 08/27/2026 OLIGOCLONAL BANDS *CSF AND SERUM REQUIRED* Microbiology Routine MS (multiple sclerosis) Expected: 08/27/2025, Expires: 08/27/2026 PROTEIN TOTAL CSF Microbiology Routine MS (multiple sclerosis) Expected: 08/27/2025, Expires: 08/27/2026 CELL COUNT, CSF Lab Routine MS (multiple sclerosis) Expected: 08/27/2025, Expires: 08/27/2026 Scheduled Referrals Name Type Priority Associated Diagnoses Orde r Schedule Ambulatory referral to Neurology (OTHER) Referral Routine Cerebral aneurysm (HHS/HCC) Ordered: 08/08/2025 Ambulatory referral to Neurosurgery (OTHER) Referral Routine Cervical spinal stenosis Imbalance Ordered: 08/27/2025 documented as of this encounter Visit Diagnoses Diagnosis MS (multiple sclerosis)- Primary Multiple sclerosis Cerebral aneurysm (HHS/HCC) Cerebral aneurysm, nonruptured Cervical spinal stenosis Spinal stenosis in cervical region Imbalance Abnormality of gait documented in this encounter Care Teams Raveler Relationship Specialty Start Date End Date Tasneem Choi NP [address] [facility] [address] [place] [phone] PCP - General Nurse Practitioner Family 07/20/25 documented as of this encounter
--- OUTSIDE RECORDS SUMMARY | 2025-09-12 15:24 | XMS_ITS | Encounter Summary ---
Author Organization [facility] Address [address] [place] [address] Care Team Providers Care Dietetic Aide Name Role Phone Choi [place] ROZ Primary Care Provider [phone] Encounter Details Date Type Department Care Team (Late st Contact Info) Description 08/09/2025 Days of Wonder Message Enc [facility] - [address], [address] [place] [phone] Franny, [facility] Provider Specialist Social History Tobacco Use [...] st Contact Info) Description 09/14/2025 2:40 PM STAINED GLASS INSTALLER Office Visit [facility] - [facility] 3 [facility], [address] [place] [phone] Robert Churchill MD [address] [place] [address] 09/19/2025 8:25 AM STAINED GLASS INSTALLER Appointment [facility] [address] Paul Berger MD [address] [place] [address] 09/19/2025 8:30 AM STAINED GLASS INSTALLER Appointment [facility] [address] Christen Whyte NP [address] [place] [phone] 09/19/2025 10:00 AM STAINED GLASS INSTALLER [facility]ment [facility] [place] [address] Christen Whyte NP 3 [facility] [address] [place] [phone] 09/20/2025 9:00 AM STAINED GLASS INSTALLER Office Visit [facility] Multispecialty Care - [facility] [address], [address] [place] [phone] Christen Whyte NP 3 [facility] [address] [place] [address] 10/03/2025 9:00 AM STAINED GLASS INSTALLER [facility] [address] [place] [address] Christen Whyte NP 3 [facility] [address] [place] [phone] documented as of this encounter Visit Diagnoses Not on filedocumented in this encounter Care Teams Dietetic Aide Relationship Specialty Start Date End Date Tasneem Choi NP [address] [place] [phone] PCP - General Nurse Practitioner Family 07/20/25 documented as of this encounter
--- OUTSIDE RECORDS SUMMARY | 2025-09-12 15:24 | XMS_ITS | Clinical Summary ---
Author Organization [facility] Address [address] [phone] Phone Care Team Providers Care Medical Officer Name Role Phone Gilberto Cain DO Primary Care Provider [phone] Allergies Active Allergy Reactions Criticality Noted Date Comments Penicillins Rash 12/15/2019 Medications metoprolol tartrate (LOPRESSOR) 25 MG Tablet Take 25 mg by mouth nightly. Active amLODIPine (NORVASC) 5 MG Tablet Take 5 mg by mouth every morning. Active furosemide (Lasix) 20 MG Tablet Take 20 mg by mouth daily. Active Cholecalciferol (VITAMIN D3 PO) Take by mouth daily. Active Multiple Vitamin (MULTI-VITAMIN PO) Take by mouth daily. Active Family History Medical History Relation Name Comments Cancer Brother colorectal Bladder cancer Father Diabetes Maternal Grandfather Hypertension Maternal Grandfather Cancer Maternal Grandmother ovarain cervacial Hypertension Maternal Grandmother Hypertension Mother Stroke Mother Cancer Paternal Grandmother cervica le Cancer Sister bladder Relation Name Status Comments Brother Father Maternal Grandfather Maternal Grandmother Mother Paternal Grandmother Sister Social History Tobacco Use Types Packs/Day Years Used Date Smoking Tobacco: Former Cigarettes Smokeless Tobacco: Never Tobacco Cessation:Counseling Given: No Comments:when she was a teenager Alcohol Use Standard Drinks/Week Comments Yes 0 (1 standard drink = 0.6 oz pur e alcohol) ocassionally Comments No Sex and Gender Information Value Date Recorded Sex Assigned at Not on file Legal Sex Female 12:36 AM CDT Gender Identity Not on file Sexual Orientation Not on file Last Filed Vital Signs Vital Sign Reading Time Taken Comments Blood Pressure 113/70 02/12/2021 8:09 AM CDT Pulse 62 02/12/2021 8:09 AM CDT Temperature 36 C (96.8 F) 02/12/2021 5:48 AM CDT Respiratory Rate 14 02/12/2021 8:09 AM CDT Oxygen Saturation 100% 02/12/2021 8:09 AM CDT Inhaled Oxygen Concentration - - Weight 91.6 kg (202 lb) 01/22/2021 3:00 PM CDT Height 170.2 cm (5' 7) 01/22/2021 3:00 PM CDT Body Mass Index 31.64 01/22/2021 3:00 PM CDT Plan of Treatment Health Maintenance Due Date Last Done Comments Hepatitis C Virus (HCV) Screening 1968 TdaP Immunization 1968 Hepatitis B Immunization (1 of 3 - 19+ 3-dose series) 1987 Cologuard 2013 Immunochemical Fecal Occult Blood 2013 Pneumococcal Immunization (50+ years) (1 of 1 - PCV) 2018 Zoster Immunization (1 of 2) 2018 Colonoscopy 02/12/2022 02/12/2021, 09/17, 08/02/2017, Additional history exists Colorectal Cancer Screening 02/12/2022 Influenza Immunization (#1) 2025 SARS-COV-2 Immunization ( season) 2025 10/26/2020, 10/05/2020 Respiratory Syncytial Virus (RSV) Immunization (Adult) (1 - 1-dose 75+ series) 2043 Human Papillomavirus (HPV) Immunization Aged Out No longer eligible based on patient's age to complete this topic Meningococcal Immunization (ACWY) Aged Out No longer eligible based on patient's age to complete this topic Rotavirus Immunization Aged Out No lo nger eligible based on patient's age to complete this topic Procedures Procedure Name Priority Date/Time Associated Diagnosis Comments HM COLONOSCOPY Routine 10/04/2019 from Last 3 Months or Most Recently Relevant to Health Maintenance Results * HM COLONOSCOPY (10/04/2019) us Eliu T Klpilo DO PROCEDURE/MINOR SURGICAL ORDERA BLES Final Result from Last 3 Months or Most Recently Relevant to Health Maintenance Insurance [facility] Care Teams Medical Officer Relationship Specialty Start Date End Date Gilberto Cain DO [address] [place] [address] PCP - General Internal Medicine 10/16/19
== END 2025-09-12 15:21 | disposition home or self-care (01) ==
LOC: ANHFOHIMG 15:22
PROVIDERS: PCP Nurse Practitioner Family; Visit Provider Nurse Practitioner Family
DX: Z12.31 Encounter for screening mammogram for malignant neoplasm of breast (principal); Z15.09 Genetic susceptibility to other malignant neoplasm
CPT/HCPCS: 77063; 77067